=== PATIENT | female | born 1955 | race Caucasian/White ===

== ENCOUNTER → 2019-04-11 12:25 | Outpatient (CLI) | payer BC, SELFPAY ==
[2019-04-11 11:43] VITALS: BMI 26.6
[2019-04-11 13:38] LABS: Absolute Lymphocyte Count 2.71 X10^3/uL (0.83-4.51); Absolute Neutrophil Count 4.3 X10^3/uL (2.0-7.7); Basophil# 0.05 X10^3/uL; Basophil% 0.6 % (0-1); Eosinophil# 0.13 X10^3/uL; Eosinophils% 1.6 % (0-5); Hemoglobin 13.6 g/dL (12.0-15.0); Lymphocyte # 2.71 X10^3/ul (4.0); Lymphocyte % 34.2 % (19-41); Mean Corp Hgb Conc 32.4 g/dL (32-36); Mean Corpuscular Hgb 31.1 pg (27.0-32.0); Mean Corpuscular Volume 95.9 fL (81-99); Mean Platelet Vol. 9.7 fl (6.2-12.0); Monocyte# 0.76 X10^3/uL; Monocyte% 9.6 % (0-10); NRBC Flagged by Analyzer 0 % (0-5); Neutrophil # 4.25 X10^3/uL (2.7-7.7); Neutrophil % 53.7 % (47-70); Platelet Count 325 K/mm3 (150-450); RBC Distribution Width CV 11.4 % (11.6-14.6); Red Blood Count 4.38 M/mm3 (4.2-5.4); White Blood Count 7.9 K/mm3 (4.4-11.0)
[2019-04-11 13:46] LABS: Partial Thromboplast Time 29.3 Seconds (24.1-36.2); Prothrombin Time (Protime)PT. 13.3 SECONDS (11.7-14.9)
[2019-04-11 14:03] LABS: Anion Gap 3 (5-15); BUN 14 mg/dL (7-18); BUN/Creat Ratio 19.9 RATIO (10-20); Calcium,Total 9.3 mg/dL (8.5-10.1); Chloride 99 mmol/L (98-107); EST Glomerular Filtration Rate 90 mL/min (>60); Est Glom Filt Rate - Afr Amer 109 mL/min (>60); Glucose 142 mg/dL (74-106); Potassium 4.2 mmol/L (3.5-5.1); Sodium Level 134 mmol/L (136-145)
== END ==
PROVIDERS: Family Provider Family Medicine; PCP Family Medicine; Referring Provider Specialist; Visit Provider Specialist
DX: I25.10 Atherosclerotic heart disease of native coronary artery without angina pectoris (principal); I10 Essential (primary) hypertension; E78.5 Hyperlipidemia, unspecified; Z95.5 Presence of coronary angioplasty implant and graft
CPT/HCPCS: 36415; 80048; 85025; 85610; 85730

== ENCOUNTER 2019-04-20 08:35 | Day surgery (SDC) | payer BC, SELFPAY ==
[2019-04-11 11:43] VITALS: BMI 26.6
[2019-04-19 07:34] VITALS: BMI 26.6
[2019-04-20 11:45] LABS: Blood Gas Specimen Type VEN; VBG BASE EXCESS 1 mmol/L (-1.0-3.5); VBG Bicarbonate 27 mmol/L (22-26); VBG Oxygen Content 28 mmol/L (23-33); VBG PO2 34 mmHg (25-40); VBG SO2 63 % (50-70); VBG pCO2 47.9 mmHg (41-51); VBG pH 7.35 (7.32-7.42)
[2019-04-20 11:45] LABS: Blood Gas Specimen Type VEN; VBG BASE EXCESS 4 mmol/L (-1.0-3.5); VBG Bicarbonate 30 mmol/L (22-26); VBG Oxygen Content 31 mmol/L (23-33); VBG PO2 34 mmHg (25-40); VBG SO2 63 % (50-70); VBG pCO2 50.4 mmHg (41-51); VBG pH 7.38 (7.32-7.42)
[2019-04-20 11:46] LABS: Blood Gas Specimen Type VEN; VBG BASE EXCESS 2 mmol/L (-1.0-3.5); VBG Bicarbonate 27 mmol/L (22-26); VBG Oxygen Content 29 mmol/L (23-33); VBG PO2 40 mmHg (25-40); VBG SO2 74 % (50-70); VBG pCO2 46.5 mmHg (41-51); VBG pH 7.38 (7.32-7.42)
--- NOTE | 2019-04-20 16:31 | CL.D_ITS ---
Patient Name: Gil MARTINEZ Study Date: 04/20/2019 Performing: Miranda Retana MD Ht: 64 inches 163 cm : 1955 Wt: 154.5 lbs 70 kg Age: 63 Gender: female BSA: 1.76 PROCEDURE(S) PERFORMED LA68-AXQ/LHC/COR/LV CLINICAL PROFILE AND INDICATIONS Indications: Worsening Angina, pulmonary HTN Heart Failure: None Stress/Imaging Stress/Image Study Performed: No CAD Presentations: Unstable angina. CONCLUSIONS No significant stenoses. Patent prior stent in LCx. EF is 55% with inferobasal hypokinesis. No signif icant or MR. Elevated right heart pressures. Normal PCWP and LVEDP RECOMMENDATIONS DESCRIPTION OF PROCEDURE The patient arrived to the procedure lab. The risks and benefits of the procedure as well as a full d escription of our services here and current unavailability of surgical backup were fully explained to the patient and/or their significant other prior to the catheterization. The Timeout was completed, verifying the correct patient and procedure. The patient's procedural site was prepped and draped in the usual fashion. Local anesthetic was given subcutaneously to right radial region with Lidocaine 2% . Local anesthetic was given subcutaneously to right ulner region with Lidocaine 2%. Using a modified Seldinger technique, and ultrasound guidance,arterial access was obtained via the right ulner artery , a 6Fr sheath was inserted. Venous access was obtained via the right antecubital vein, a 7Fr sheath was inserted. A 7Fr thermal dilution catheter was inserted and right heart pressures were recorded, i t was then advanced to PA position for cardiac outputs. The Thermal dilution catheter was then removed. Left Coronary Artery selective angiography was performed in multiple views using a 5 Fr . JL3.5 catheter. Left Coronary Artery selective angiography was performed in multiple views using a 5 Fr. JL3.5 catheter. Right Coronary Artery selective angiography was then performed in multiple view s using a 5 Fr. JR 4 catheter. Left Ventriculography was performed in HOLDEN projection using a 5 Fr. Pi gtail catheter. LV to AO pullback pressures were then recorded.The arterial sheath was pulled and a T R Band was applied for hemostasis CORONARY ANGIOGRAPHY DOMINANCE: Left Dominant LEFT HEART ASSESSMENT Left Ventricular Ejection Fraction: by LV Gram 55 % Inferior Basal Hypokinesis - Mild RIGHT HEART ASSESSMENT Binu CO: 6.66 Binu CI: 3.78 PW: 15/12 11 PA: 47/19 29 RV: 47/3 9 RA: 9/7 6 PVR: 341 SVR: 829 LEFT MAIN: Angiographically normal LEFT ANTERIOR DESCENDING ARTERY: Mild luminal irregularities CIRCUMFLEX ARTERY: Mild luminal irregularities, Previously placed stent is patent RIGHT CORONARY ARTERY: Mild luminal irregularities VALVE FINDINGS: No Aortic Valve Stenosis No Mitral Insufficency COMPLICATIONS No Complications PROCEDURE MEDICATIONS Versed 1 mg IV Fentanyl 50 mcg IV Versed 1 mg IV Fentanyl 50 mcg IV Baby Aspirin (81mg) 1 Tabs PO @ 04/20/2019 08:59:02 SUMMARY OF HEMODYNAMIC DATA Time AIR REST ECG 09:08:36 RV 47/3, 9 11:07:17 PA 47/19 (29) PA 11:09:23 PW 15/12 (11) PV 11:09:43 RA 12/02 (6) SV 11:11:59 AO 99/56 (75) SA 11:35:09 LV 131/-7, 7 11:39:04 LV 121/0, 11 11:39:23 LV 120/1, 11 11:39:31 LVp 115/0, 13 11:40:17 AOp 112/51 (75) 11:40:23 Type SV CO (l/m) CI (l/m/ HR Time AIR REST Binu 121.10 6.66 3.78 55 09:08:36 Label % O2 Pres/Loc Time AIR REST AO 93 PV 11:34:34 PA 63 PA 11:34:40 RA 74 SV 11:34:47 RV 63 11:34:56 Signed By Miranda Retana MD On 04/20/2019 4:31:03 PM Miranda Retana MD
== END 2019-04-20 14:10 | disposition home or self-care (01) ==
LOC: CLSP 08:36
PROVIDERS: PCP Family Medicine; Referring Provider Specialist; Visit Provider Specialist
DX: I25.110 Atherosclerotic heart disease of native coronary artery with unstable angina pectoris (principal); I27.20 Pulmonary hypertension, unspecified; I25.2 Old myocardial infarction; I10 Essential (primary) hypertension; E78.5 Hyperlipidemia, unspecified; J44.9 Chronic obstructive pulmonary disease, unspecified; K21.9 Gastro-esophageal reflux disease without esophagitis; F32.9 Major depressive disorder, single episode, unspecified; E11.9 Type 2 diabetes mellitus without complications; Z95.5 Presence of coronary angioplasty implant and graft; Z79.84 Long term (current) use of oral hypoglycemic drugs; Z79.82 Long term (current) use of aspirin; Z79.899 Other long term (current) drug therapy; Z87.891 Personal history of nicotine dependence
CPT/HCPCS: 82803; 93460; 99152; 99153; J7040; C1751; C1769; C1894; Q9967

== ENCOUNTER 2020-07-20 13:09 | Emergency (ER) | payer BC, SELFPAY ==
[2020-02-11 11:40] VITALS: BMI 26.6
[2020-07-20 13:09] VITALS: BP 172/91; PULSE 68; RESP 16; RESP 17; TEMP 37; O2SAT 88; BMI 26.9
--- NOTE | 2020-07-20 13:12 | NURSING ---
NO OLD EKGS
--- NOTE | 2020-07-20 13:14 | EKG12_ITS ---
Test Reason : CP Blood Pressure : / mmHG Vent. Rate : 064 BPM Atrial Rate : 064 BPM P-R Int : 152 ms QRS Dur : 078 ms QT Int : 430 ms P-R-T Axes : 047 005 064 degrees QTc Int : 443 ms Normal sinus rhythm Normal ECG Confirmed by JESSICA CHENG, OLEG ([id number]), pictures editor LONI CURIEL ([id number]) on 07/23/2020 8:50:01 AM Referred By: CL Confirmed By:OLEG LOPEZ MD
--- NOTE | 2020-07-20 13:14 | RAD_ITS ---
STUDY: X-RAY CHEST REASON FOR EXAM: Female, 64 years old. chest pain TECHNIQUE: Frontal portable view of the chest COMPARISON: None. FINDINGS: Left hemidiaphragm is severely elevated. Right hemidiaphragm is normal. There are surgical clips in the left infraaortic presumed left hilar region. Left mid to upper lung zones are clear. There are coarsened interstitial markings in the right mid to lower lung zones. There is no pneumothorax, large pleural effusions or pulmonary edema. Cardiac size is difficult to estimate due to poor visualization of the left cardiac border. There is possibly mild cardiomegaly. RAD/Chest 1 View (Portable) IMPRESSION: 1. Severely elevated left hemidiaphragm, possibly postsurgical change versus diaphragmatic paralysis. 2. Increased right lower lung markings, unclear significance, possibly atelectasis. 3. Prior left mediastinal surgery. Electronically Signed: Alexandria Cook MD at 14:21 EDT Tel , Service support ,
[2020-07-20 13:15] VITALS: O2SAT 94
--- NOTE | 2020-07-20 13:17 | ED.DCSUM_ITS ---
History of Present Illness Chief Complaint: Chest Pain Informant: Patient Narrative: 64-year-old female with history of CAD, RI, COPD, hypertension, hyperlipidemia, cardiac stents presenting with chest pain which she describes as retrosternal and feeling tight. She states this started at lunchtime before she ate her meal. She does describe dyspepsia with this as well as nausea. She states she felt a little sweaty. Her states she was not sweating and did not look pale. Patient denies any shortness of breath that is new and she intermittently has to wear oxygen for COPD. Patient did take a nitroglycerin before arrival and her symptoms have improved. She is not having chest pain on arrival. Patient's last stress test was 2018. Last cardiac catheterization was 04/20/2019 which showed EF of 55% as well as patent stents. Patient was seen by pulmonology and diagnosed with pulmonary hypertension. At this point pulmonology was requesting a right heart catheterization by Dr. Dye and patient did have an office visit however no catheterization was scheduled. She was to be reevaluated in 1 year. Patient states he has had a couple of episodes of this pain since her last visit with cardiology. He states the worst one was today. It lasted about 30 minutes. Again it improved with nitroglycerin. Patient does have significant GI history and has GERD as well as Tenorio's esophagus. She is scheduled for upper endoscopy in a few days. Patient does not have a DVT/PE risk factors. - Past Medical History (1) Pulmonary hypertension Status: Chronic (2) Coronary artery disease Status: Chronic (3) Palpitations Status: Chronic Comment: Patient has fluttering sensation in her chest lasting about 10 seconds once every 2 weeks. We have discussed event monitoring at last visit and patient preferred to wait and see as this is not bothering her at this time. I think that is reasonable. I advised the patient that if she has prolonged episodes or if her symptoms become more frequent she can let us know. We will see her back in 6 months. (4) Hyperlipidemia Status: Chronic (5) Essential hypertension Status: Chronic (6) Atherosclerosis of coronary artery of red devil heart without angina pectoris Status: Chronic Comment: 3.0 x 24 mm Veriflex BMS to proximal CX 10/06/11 (7) Presence of stent in coronary artery Status: Chronic Comment: 3.0 x 24 mm Veriflex BMS to proximal CX 10/06/11 Past Medical History - Allergies and Home Meds Allergies/Adverse Reactions: Allergies milk Allergy (Intermediate, Verified 07/20/20 13:09) Upset Stomach Sulfa (Sulfonamide Antibiotics) Allergy (Intermediate, Verified 07/20/20 13:09) Itching Primary Care Physician: Howard Vicente MD [Primary Care Provider] - Prior records reviewed: Yes Past Medical History: - - Reviewed in problem list Surgical History: noncontributory Lives: Spouse/ Significant Other Smoking Status: Former smoker Alcohol: None Drugs: None Review of Systems General: Reports: Sweats. Denies: Chills, Fever Eyes: Denies: Visual changes - bilaterally, Diplopia ENT: Denies: Rhinorrhea, Sore throat Cardiovascular: Reports: Chest pain. Denies: Palpitations, Heart racing Respiratory: Denies: Dyspnea, Cough, Dyspnea on exertion Gastrointestinal: Reports: Vomiting, - - Dyspepsia. Denies: Abdominal pain, Nausea, Diarrhea, Melena, Hematochezia Genitourinary: Denies: Dysuria, Hematuria Musculoskeletal: Denies: Myalgias, Arthralgias Skin: Denies: Rash, Abscess Neurological: Denies: Headache, Weakness, Parasthesia Psych: Denies: Depression, Anxiety, Suicidal thoughts Endocrine: Denies: Polyuria, Polydipsia Hematologic: Denies: Easy bruising, Easy bleeding Physical Exam Vital Signs/Narrative: Vital Signs Temp Pulse Resp BP Pulse Ox 07/20/20 13:09 98.6 F 68 17 172/91 H 88 Inital Vital Signs reviewed: Yes General: Well nourished, No Acute Distress Head: Normocephalic, Atraumatic Eyes: Perrl, EOMI ENT: Moist mucous membranes, No rhinorrhea Cardiovascular: Regular rate, Regular rhythm Respiratory: No distress, CTA bilaterally Abdomen: Soft, Nontender, Nondistended Extremities: Nontender, No edema. Negative for: Calf Tenderness Skin: Normal color, No rash Neurological: Alert, Oriented x3, Cranial nerves II-XII grossly intact Psychological: Normal affect, Normal Mood Diagnostic/Tx/Re-eval - Medical Decision Making Patient arrives with chest pain which is improved with nitroglycerin. She does describe dyspepsia, nausea, feeling sweaty. Patient had EKG performed on arr ival which shows a sinus rhythm at 64 bpm without signs of ischemic changes as interpreted by myself. Chest x-ray one-view portable interpreted by myself shows no acute process. CBC, BMP, troponin all within normal limits with exception of a potassium of 3.4. D-dimer is negative. Patient was discussed with Dr. Dye given her risk factors and heart score as well as her upcoming endoscopy without any current cardiac clearance. Patient has not had recent stress test, EKG, cardiac catheterization. He felt as long as the patient did not have return of her chest pain and that her delta troponin was negative patient is stable to be discharged home. He also felt that she would be fine doing doing an endoscopy. This was discussed with patient. If delta troponin is negative, EKG does not change, and she does not have any more chest pain she will be discharged home [facility] as an out patient. Patient will be signed out to incoming ED physician for follow up EKG, troponin, and monitoring. Impression: 1. Chest pain ED Disposition - Plan for ED Patient: Disposition: Home or Assisted Living Instructions: ED Chest Pain, Uncertain Cause Referrals: Howard Vicente MD [Primary Care Provider] -
[2020-07-20] MEDS: Aspirin 81 MG TAB.CHEW 324 MG PO (13:22)
[2020-07-20 13:26] LABS: Absolute Lymphocyte Count 3.31 X10^3/uL (0.83-4.51); Absolute Neutrophil Count 5.4 X10^3/uL (2.0-7.7); Basophil# 0.05 X10^3/uL; Basophil% 0.5 % (0-1); Eosinophil# 0.16 X10^3/uL; Eosinophils% 1.6 % (0-5); Hematocrit 40.3 % (37-47); Lymphocyte # 3.31 X10^3/ul (0.83-4.51); Lymphocyte % 33.8 % (19-41); Mean Corp Hgb Conc 32.3 g/dL (32-36); Mean Corpuscular Hgb 30.2 pg (27.0-32.0); Mean Corpuscular Volume 93.5 fL (81-99); Mean Platelet Vol. 8.9 fl (6.2-12.0); Monocyte# 0.82 X10^3/uL; Monocyte% 8.4 % (0-10); NRBC Flagged by Analyzer 0 % (0-5); Neutrophil # 5.42 X10^3/uL (2.7-7.7); Neutrophil % 55.3 % (47-70); Platelet Count 356 K/mm3 (150-450); RBC Distribution Width CV 12.4 % (11.6-14.6); RBC Distribution Width SD 42.9 fl (35.1-43.9); Red Blood Count 4.31 M/mm3 (4.2-5.4); White Blood Count 9.8 K/mm3 (4.4-11.0)
[2020-07-20 13:39] LABS: D-Dimer Quantitative (DVT/PE) 0.36 FEU/ug/m (0.27-0.49)
[2020-07-20 13:46] LABS: Anion Gap 6 (5-15); BUN 20 mg/dL (7-18); BUN/Creat Ratio 30.7 RATIO (10-20); Calcium,Total 8.8 mg/dL (8.5-10.1); Chloride 99 mmol/L (98-107); Creatinine, Serum 0.65 mg/dL (0.55-1.02); EST Glomerular Filtration Rate 97 mL/min (>60); Est Glom Filt Rate - Afr Amer 118 mL/min (>60); Glucose 115 mg/dL (74-106); Potassium 4.3 mmol/L (3.5-5.1); Sodium Level 134 mmol/L (136-145)
[2020-07-20 14:09] VITALS: BP 142/73; PULSE 61; RESP 17; O2SAT 94
[2020-07-20 16:13] VITALS: BP 127/100; PULSE 62; RESP 22; O2SAT 93
--- NOTE | 2020-07-20 16:15 | EKG12_ITS ---
Test Reason : REPEAT Blood Pressure : / mmHG Vent. Rate : 063 BPM Atrial Rate : 063 BPM P-R Int : 152 ms QRS Dur : 078 ms QT Int : 432 ms P-R-T Axes : 041 009 070 degrees QTc Int : 442 ms Normal sinus rhythm Confirmed by JESSICA CHENG, OLEG ([id number]), newspaper or periodical editor LONI CURIEL ([id number]) on 07/23/2020 8:50:20 AM Referred By: EZEQUIEL Confirmed By:OLEG LOPEZ MD
[2020-07-20 16:48] VITALS: BP 155/83; PULSE 62; RESP 24; O2SAT 96
== END 2020-07-20 16:51 | disposition home or self-care (01) ==
PROVIDERS: Emergency Provider Student in an Organized Health Care Education/Training Program; PCP Family Medicine
DX: R07.9 Chest pain, unspecified (principal); I25.10 Atherosclerotic heart disease of native coronary artery without angina pectoris; I27.20 Pulmonary hypertension, unspecified; I10 Essential (primary) hypertension; I25.2 Old myocardial infarction; J44.9 Chronic obstructive pulmonary disease, unspecified; E78.5 Hyperlipidemia, unspecified; K21.9 Gastro-esophageal reflux disease without esophagitis; K22.70 Barrett's esophagus without dysplasia; Z95.5 Presence of coronary angioplasty implant and graft; Z79.899 Other long term (current) drug therapy; Z87.891 Personal history of nicotine dependence
CPT/HCPCS: 71045; 80048; 84484; 85025; 85379; 93005; 99284; A4216

== ENCOUNTER → 2021-02-10 12:25 | Outpatient (CLI) | payer BC, SELFPAY ==
[2021-02-10 13:28] LABS: BNP,B-Type NATRIURETIC PEPTIDE 101.1 pg/mL (0-100)
[2021-02-10 13:46] LABS: BUN 15 mg/dL (7-18); Creatinine, Serum 0.65 mg/dL (0.55-1.02); EST Glomerular Filtration Rate 98 mL/min (>60); Glucose 116 mg/dL (74-106)
[2021-02-10 13:47] LABS: Anion Gap 9 (5-15); BUN/Creat Ratio 23.1 RATIO (10-20); Chloride 98 mmol/L (98-107); Est Glom Filt Rate - Afr Amer 118 mL/min (>60); Potassium 4.2 mmol/L (3.5-5.1); Sodium Level 131 mmol/L (136-145)
== END ==
PROVIDERS: PCP Family Medicine; Referring Provider Nurse Practitioner Gerontology; Visit Provider Nurse Practitioner Gerontology
DX: R06.02 Shortness of breath (principal); I27.20 Pulmonary hypertension, unspecified
CPT/HCPCS: 36415; 80048; 83880

== ENCOUNTER → 2021-02-18 07:26 | Outpatient (CLI) | payer BC, SELFPAY ==
--- NOTE | 2021-02-18 07:29 | ECHOD_ITS ---
Reason For Study: DYSPNEA/SOB Procedure This was a 2D Doppler, Color Flow transthoracic echocardiogram. Exam performed in department. Left Ventricle Normal LV size. Left ventricular systolic function is normal. The estimated ejection fraction is 60 %. Stage 1 diastolic dysfunction. No regional wall motion abnormalities noted. Right Ventricle Normal RV size. Normal systolic function. Atria The left atrium is mildly enlarged. Normal right atrium. Mitral Valve Normal mitral valve. Tricuspid Valve Normal tricuspid valve. Mild (1+) tricuspid valve insufficiency. Pulmonary artery systolic pressure is 36 mmHg. Aortic Valve Trisinus/trileaflet aortic valve. Pulmonic Valve Normal pulmonic valve. Great Vessels Normal aortic root. The pulmonary artery is normal size. Normal inferior vena cava. Pericardium/Pleural No pericardial effusion. MMode/2D Measurements & Calculations LVIDd: 4.5 cm IVSd: 1.1 cm Ao root diam: 3.2 cm LVIDs: 2.9 cm LVPWd: 1.1 cm RVDd: 2.9 cm FS: 35.4 % LAV(MOD-bp): 78.6 ml LA A4 area: 23.2 cm2 LA dimension(2D): 4.3 cm LAV(MOD-bp) Indexed: 44.1 ml/m2 LAV(MOD-sp2): 77.9 ml LAV(MOD-sp4): 75.8 ml RA A4 area: 17.0 cm2 Time Measurements MV dec time: 0.22 sec Doppler Measurements & Calculations MV E max vik: 76.4 cm/sec Lat Peak E' Vik: 11.8 cm/sec Med Peak E' Vik: 8.3 cm/sec MV A max vik: 99.1 cm/sec E/E' lat: 6.5 E/E' med: 9.3 MV E/A: 0.77 Ao V2 max: 154.3 cm/sec LV V1 max: 118.2 cm/sec PA V2 max: 116.3 cm/sec Ao max P.5 mmHg LV V1 max P.6 mmHg TR max vik: 284.6 cm/sec TR max P.4 mmHg ECHO/Echo Complete Interpretation Summary Normal LV size. Left ventricular systolic function is normal. The estimated ejection fraction is 60 %. Stage 1 diastolic dysfunction. The left atrium is mildly enlarged. Structurally normal valves. Ordering Physician: Jackie Garcia Referring Physician: Howard Vicente Performed By: Lakshmi Galloway RDCS, RVT
--- NOTE | 2021-02-18 12:48 | STRESSREP ---
Stress Test Report Pharmacology myocardial perfusion stress test. 65-year-old lady with a history of chest pain. Stress protocol: Resting EKG demonstrates normal sinus rhythm with a rate of 80 bpm normal intervals are noted resting blood pressure is 122/78 mmHg. 0.4 mg of regadenoson was infused per usual protocol followed by rapid intravenous saline flush injection continuous EKG monitoring was performed. The maximum heart rate attained was 129 bpm which was 82% of max impact at heart rate the maximum workload was 1 metabolic equivalent. At rest there were no ST or T wave changes noted to suggest abnormal flow reserve and at peak infusion nonspecific ST changes were noted with did not meet the criteria for ischemia. No clinical angina was noted. Myocardial perfusion protocol. 11.9 mCi of technetium 99m sestamibi was injected at rest. 0.4 mg of regadenoson was infused per usual protocol. At peak infusion 33.1 mCi of technetium 99m sestamibi was injected stress images were obtained stress and rest images were reconstructed and compared in the short axis vertical long horizontal long axis. Gated images were also obtained. Perfusion SPECT analysis: Review of the stress images demonstrate normal uptake of tracer noted in all areas of the myocardium. The resting images similarly demonstrate normal uptake of tracer noted in all areas of the myocardium. No areas of reversibility are noted to suggest ischemia and no previous infarct is noted. Gated SPECT analysis: The gated ejection fraction is 74 Conclusion: Pharmacologic myocardial perfusion stress test with no evidence of ischemia. Preserved ejection fraction.
== END ==
PROVIDERS: PCP Family Medicine; Referring Provider Nurse Practitioner Gerontology; Visit Provider Nurse Practitioner Gerontology
DX: R07.9 Chest pain, unspecified (principal); R06.02 Shortness of breath
CPT/HCPCS: 78452; 93017; 93306; A9500; A4216; J2785

== ENCOUNTER → 2021-02-23 12:48 | Outpatient (CLI) | payer BC, SELFPAY ==
--- NOTE | 2021-02-23 12:51 | CDU_ITS ---
Reason For Study: Dizziness Rt. Velocities/BP Lt. Velocities/BP Prox CCA 74/20 cm/sec. Prox CCA 95/24 cm/sec. Mid CCA 82/18 cm/sec. Mid CCA 73/22 cm/sec. Dist CCA 74/25 cm/sec. Dist CCA 69/16 cm/sec. Prox ICA 72/17 cm/sec. Prox ICA 74/23 cm/sec. Mid ICA 85/27 cm/sec. Mid ICA 71/26 cm/sec. Dist ICA 55/18 cm/sec. Dist ICA 93/25 cm/sec. Rt. ICA/CCA = 1.0. Lt. ICA/CCA = 1.3. Prox ECA 75/18 cm/sec. Prox ECA 80/14 cm/sec. Rt. Vert. 60/17 cm/sec. Lt. Vert. 71/24 cm/sec. Right Extracranial There is intimal thickening but no significant atherosclerotic plaque noted in the right common carotid artery. There is heterogeneous, irregular atherosclerotic plaque noted in the right internal carotid artery. There is intimal thickening but no significant atherosclerotic plaque noted in the right external carotid artery. Antegrade flow is noted in the right vertebral artery. Heterogenous, non vascular structure noted Rt Thyroid measuring 1.18cm x 1.36cm. Left Extracranial There is heterogeneous, irregular atherosclerotic plaque noted in the left common carotid artery. There is heterogeneous, irregular atherosclerotic plaque noted in the left internal carotid artery. There is intimal thickening but no significant atherosclerotic plaque noted in the left external carotid artery. Antegrade flow is noted in the left vertebral artery. Procedure Carotid Duplex [id number]. This is a Carotid Duplex examination using B-mode, color flow and specral Doppler. Exam performed in department. VL/Carotid Duplex Ultrasound Interpretation Summary Irregular calcific plague at the proximal right internal carotid with <50% sten osis <50% stenosis right external carotid Irregular calcific plague at the proximal left internal carotid with <50% steno sis <50% stenosis left external carotid Patent, antegrade vertebrals bilaterally Heterogenous right thyroid nodule 1.18 x 1.36cm Ordering Physician: Jackie Garcia Referring Physician: Howard Vicente Performed By: Jennifer Zarco RDCS, RVT
== END ==
PROVIDERS: PCP Family Medicine; Referring Provider Nurse Practitioner Gerontology; Visit Provider Nurse Practitioner Gerontology
DX: I65.23 Occlusion and stenosis of bilateral carotid arteries (principal); R42 Dizziness and giddiness
CPT/HCPCS: 93880

== ENCOUNTER 2021-06-11 15:55 | Outpatient (CLI) | payer BC, SELFPAY ==
--- NOTE | 2021-06-11 16:03 | RAD_ITS ---
STUDY: X-RAY CHEST REASON FOR EXAM: Female, 65 years old. Cough TECHNIQUE: Frontal and lateral views COMPARISON: 07/16/2020. FINDINGS: Stable elevation left hemidiaphragm. The lungs are not fully expanded. There is no demonstrated pleural abnormality. Normal size heart. There are surgical clips over the mediastinum. Normal visualized pulmonary arteries. Calcified aortic arch and descending thoracic aorta. Mild degenerative changes of the thoracic spine. Normal visualized ribs, clavicles, and shoulders. There is no demonstrated abnormality of the visualized soft tissue structures of the upper abdomen. RAD/Chest PA and Lateral IMPRESSION: Elevated left hemidiaphragm. No acute pulmonary pathology. Electronically Signed: Kuldeep Uriarte DO at 16:38 EDT ,
[2021-06-11 17:27] LABS: Absolute Lymphocyte Count 2.61 X10^3/uL (0.83-4.51); Absolute Neutrophil Count 10.8 X10^3/uL (2.0-7.7); Basophil# 0.05 X10^3/uL; Basophil% 0.3 % (0-1); Eosinophil# 0.33 X10^3/uL; Eosinophils% 2.2 % (0-5); Hematocrit 41.6 % (37-47); Lymphocyte # 2.61 X10^3/ul (0.83-4.51); Lymphocyte % 17.2 % (19-41); Mean Corp Hgb Conc 33.7 g/dL (32-36); Mean Corpuscular Hgb 30.7 pg (27.0-32.0); Mean Corpuscular Volume 91.2 fL (81-99); Mean Platelet Vol. 8.8 fl (6.2-12.0); Monocyte# 1.23 X10^3/uL; Monocyte% 8.1 % (0-10); NRBC Flagged by Analyzer 0 % (0-5); Neutrophil # 10.82 X10^3/uL (2.7-7.7); Neutrophil % 71.4 % (47-70); Platelet Count 462 K/mm3 (150-450); RBC Distribution Width CV 12.7 % (11.6-14.6); RBC Distribution Width SD 42.4 fl (35.1-43.9); Red Blood Count 4.56 M/mm3 (4.2-5.4); White Blood Count 15.2 K/mm3 (4.4-11.0)
[2021-06-11 17:42] LABS: Anion Gap 4 (5-15); BUN 11 mg/dL (7-18); BUN/Creat Ratio 15.5 RATIO (10-20); Calcium,Total 8.8 mg/dL (8.5-10.1); Chloride 97 mmol/L (98-107); Creatinine, Serum 0.71 mg/dL (0.55-1.02); EST Glomerular Filtration Rate 88 mL/min (>60); Est Glom Filt Rate - Afr Amer 106 mL/min (>60); Glucose 151 mg/dL (74-106); Potassium 4.6 mmol/L (3.5-5.1); Sodium Level 129 mmol/L (136-145)
== END 2021-06-11 23:59 | disposition home or self-care (01) ==
PROVIDERS: PCP Family Medicine; Referring Provider Nurse Practitioner Gerontology; Visit Provider Nurse Practitioner Gerontology
DX: R05.9 Cough, unspecified (principal); R06.02 Shortness of breath; E87.1 Hypo-osmolality and hyponatremia
CPT/HCPCS: 36415; 71046; 80048; 85025

== ENCOUNTER 2021-06-18 08:11 | Observation (INO) | payer BC, SELFPAY ==
[2021-06-18] VITALS (17 sets, daily range): BP systolic 137–183; BP diastolic 73–105; PULSE 76–118; RESP 16–26; TEMP 36.2–37.2; O2SAT 83–96; BMI 25.9; BMI 26.4
--- NOTE | 2021-06-18 09:11 | EKG12_ITS ---
Test Reason : SOB Blood Pressure : / mmHG Vent. Rate : 098 BPM Atrial Rate : 098 BPM P-R Int : 146 ms QRS Dur : 072 ms QT Int : 328 ms P-R-T Axes : 049 009 072 degrees QTc Int : 418 ms Normal sinus rhythm Nonspecific ST and T wave abnormality Abnormal ECG Confirmed by SUREKHA CHENG, DEAN ([id number]), senior editor LONI CURIEL ([id number]) on 06/22/2021 10:40:59 AM Referred By: EZEQUIEL Confirmed By:DEAN IRBY MD
--- NOTE | 2021-06-18 09:16 | ED.VIS.DYS ---
HPI <MAYKEL Alas - Last Filed: 06/18/21 10:56> History of Present Illness Chief Complaint: Shortness of Breath Detail of Chief Complaint: i Narrative Narrative: Patient is a 65-year-old female who presents [facility] shortness of breath for 3 weeks, patient had influenza A 3 weeks ago, she has had worsening symptoms, using her supplemental oxygen at all times, patient is febrile today at 101 prior to leaving the house. Patient states that she is coughing, having yellow to clear sputum. Patient states that she has full body aches. Patient she does use her albuterol nebulizers at home however this is little to no relief. Patient denies any nausea or vomiting. Patient is COVID-19 vaccinated. Patient denies any chest pain PFSH <MAYKEL Alas - Last Filed: 06/18/21 10:56> [facility] Medical History Atherosclerosis of coronary artery of [place] heart without angina pectoris Barretts esophagus Bilateral low back pain with sciatica Cataracts, bilateral COPD (chronic obstructive pulmonary disease) Depression Essential hypertension GERD (gastroesophageal reflux disease) History of lung cancer History of ST elevation myocardial infarction (STEMI) (~09/2011) Hyperlipidemia Multinodular goiter Type 2 diabetes mellitus without complication Home Medications albuterol sulfate 90 mcg/actuation aerosol inhaler 2 puff INHALATION Q6H PRN 11/30/18 [History Last Taken Unknown] aspirin 81 mg tablet,delayed release 81 mg PO QHS 11/30/18 [History Last Taken 06/17/21] loratadine 10 mg tablet 10 mg PO DAILY 11/30/18 [History Last Taken Unknown] meloxicam 15 mg tablet 15 mg PO DAILY 11/30/18 [History Last Taken Unknown] montelukast 10 mg tablet 10 mg PO QPM 11/30/18 [History Last Taken Unknown] oxniradx-nno-zayoy acid 0.4 mg-lycopene 300 mcg-lutein 250 mcg tablet 1 tab PO DAILY 11/30/18 [History Last Taken Unknown] omega-3 fatty acids 1,000 mg capsule 2,000 mg PO DAILY cap 11/30/18 [History Last Taken Unknown] omeprazole 40 mg capsule,delayed release 40 mg PO BIDCM cap 11/30/18 [History Last Taken Unknown] pravastatin 40 mg tablet 40 mg PO DAILY 11/30/18 [History Last Taken Unknown] metformin 500 mg tablet,extended release 24hr 500 mg PO BIDCM tab 08/08/19 [History Last Taken Unknown] albuterol sulfate 2.5 mg INHALATION Q4H PRN 02/11/20 [History Last Taken 06/18/21] cyanocobalamin (vitamin B-12) 1,000 mcg capsule 1,000 mcg PO DAILY 02/11/20 [History Last Taken Unknown] glipizide 5 mg tablet 2.5 mg PO DAILY tab 02/11/20 [History Last Taken Unknown] polyethylene glycol 3350 17 gram/dose oral powder 17 g PO DAILY g 02/11/20 [History Last Taken Unknown] enalapril maleate 20 mg tablet 20 mg PO BID #180 tab 02/10/21 [Rx Last Taken Unknown] nitroglycerin 0.4 mg sublingual tablet 0.4 mg SUBLINGUAL Q5M PRN #25 tab 02/11/21 [Rx Last Taken Unknown] magnesium oxide 250 mg PO DAILY 04/07/21 [History Last Taken Unknown] metoprolol tartrate 100 mg tablet 100 mg PO BID #28 tab 06/09/21 [Rx Last Taken Unknown] amlodipine 10 mg PO DAILY 06/18/21 [History Last Taken 06/17/21] carboxymethylcellulose sodium 1 drp EACH EYE BID 06/18/21 [History Last Taken Unknown] cholecalciferol (vitamin D3) 50 mcg PO DAILY 06/18/21 [History Last Taken Unknown] bnaoqtqpnlw-onprynlmp-ftaueacx [Trelegy Ellipta] 1 ea INHALATION DAILY 06/18/21 [History Last Taken Unknown] maltodextrin 1 ea PO QODAY 06/18/21 [History Last Taken Unknown] sertraline 25 mg PO DAILY 06/18/21 [History Last Taken Unknown] spironolactone 25 mg PO DAILY 06/18/21 [History Last Taken Unknown] Allergy/AdvReac Type Severity Reaction Status Date / Time milk Allergy Intermediate Upset Verified 06/18/21 08:13 Stomach Sulfa (Sulfonamide Allergy Intermediate Itching Verified 06/18/21 08:13 Antibiotics) Family History Mother Cancer lung Diabetes CVA (cerebral vascular accident) Myocardial infarction Father Ischemic heart disease CVA (cerebral vascular accident) Dementia Myocardial infarction CAD (coronary artery disease) CABG Sister Diabetes COPD (chronic obstructive pulmonary disease) CVA (cerebral vascular accident) Thyroid disorder Aunt Cancer breast Sister Diabetes Heart disease Surgical History History of bilateral cataract extraction (~12/2018) History of cholecystectomy History of hysterectomy History of left heart catheterization (04/20/19) History of lobectomy of lung History of tonsillectomy Presence of stent in coronary artery Social History (Reviewed 06/11/21 @ 15:21 by Jackie Garcia [employer], [employer]CHIT[employer]-C) Smoking Status: Former smoker how long ago did patient quit smokin.5 years ago alcohol intake: never substance use type: former substance user Date of last use: 30+ years ago. Experimented as a teen caffeine: No ROS <MAYKEL Alas - Last Filed: 06/18/21 10:56> ROS ED ROS Narrative Constitutional: Negative for weight loss or gain, weakness. Positive for fever, chills Eyes: Negative for vision loss, vision change, double vision ENT: Negative for any hearing changes, ringing in the ears, dizziness, discharge, pain Nose: Negative for any congestion, runny nose, sinus pain, allergies Throat: Negative for any sore throat hoarseness, voice changes, Cardiovascular: Negative for any chest pain, tightness, palpitations, racing heartbeat Respiratory: Negative for any , coughing sputum production, dyspnea on exertion, dyspnea hemoptysis. Positive for cough Gastrointestinal: Negative for any abdominal pain, nausea, vomiting, diarrhea, constipation, blood in stool, blood in vomit : Negative for any urinary frequency, incontinence, dysuria, retention, blood in urine Muscle skeletal: Negative for any muscle joint pain, stiffness, myalgias, arthralgias, neck pain, back pain Neurological: Negative for any headache, head injury, dizziness, syncope, numbness or tingling Skin: Negative for any rashes, lumps, itching, abrasions, lacerations Psychiatric: Negative for any depression, anxiety, stress, suicidal ideation, homicidal ideation Hematologic: Negative for any easy bruising, excessive bruising, easy bleeding Allergies: Negative for any eczema, hives, rash EXAM <MAYKEL Alas - Last Filed: 06/18/21 10:56> Physical Exam Const Vital Signs: 06/18/21 08:11 06/18/21 09:51 06/18/21 09:53 Temperature 97.2 F L 97.2 F L Temperature Source Temporal Temporal Pulse Rate 108 H 108 H Respiratory Rate 20 H 20 H Respiratory Effort Short of Breath Respiratory Depth Deep Respiratory Pattern Tachypnea Blood Pressure 140/85 H 140/85 H Blood Pressure Mean 103 103 Pulse Ox 94 94 Oxygen Delivery Method Room Air Room Air Nasal Cannula Oxygen Flow Rate (L/min) 2 06/18/21 10:10 Temperature Temperature Source Pulse Rate 99 Respiratory Rate 18 Respiratory Effort Respiratory Depth Respiratory Pattern Blood Pressure Blood Pressure Mean Pulse Ox Oxygen Delivery Method Oxygen Flow Rate (L/min) Positive well nourished and well developed General Appearance ED: well developed HEENT atraumatic Eyes PERRL Neck supple Resp Resp Narrative: While patient was at rest, she was 88%, patient was tachypneic Auscultation: wheezes left lower and right lower Cardio Rate: tachycardic GI non-tender Palpation: soft Back/Spine normal to inspection Extremity normal to inspection Neuro oriented x3 Sensorium / Orientation: alert and oriented to person Psych mental status grossly normal Skin Rashes: no rashes <Dr. Francesco Ochoa DO - Last Filed: 06/18/21 13:47> Physical Exam Const Vital Signs: 06/18/21 08:11 06/18/21 09:51 06/18/21 09:53 Temperature 97.2 F L 97.2 F L Temperature Source Temporal Temporal Pulse Rate 108 H 108 H Respiratory Rate 20 H 20 H Respiratory Effort Short of Breath Respiratory Depth Deep Respiratory Pattern Tachypnea Blood Pressure 140/85 H 140/85 H Blood Pressure Mean 103 103 Pulse Ox 94 94 Oxygen Delivery Method Room Air Room Air Nasal Cannula Oxygen Flow Rate (L/min) 2 06/18/21 10:10 Temperature Temperature Source Pulse Rate 99 Respiratory Rate 18 Respiratory Effort Respiratory Depth Respiratory Pattern Blood Pressure Blood Pressure Mean Pulse Ox Oxygen Delivery Method Oxygen Flow Rate (L/min) MDM <MAYKEL Alas - Last Filed: 06/18/21 10:56> [facility] MDM Narrative Medical decision making narrative: Patient appears to be in mild respiratory distress, patient was 88% on room air at rest, patient was febrile at home at 101 Fahrenheit. Patient presents the emergency department for worsening shortness of breath, feeling of fever and chills and productive cough for the last 48 hours. Patient did receive a full septic work-up with 2 sets of blood cultures, patient was leukocytic, patient EKG showed tachycardia however no acute process. Patient's chest x-ray was unremarkable. Patient did receive IV fluids, Tylenol, breathing treatments, IV steroids, this did improve the patient's symptoms. On reevaluation, the patient was 92 to 93% on 2 L, patient still was tachypneic, was feeling unwell, patient will be admitted to the hospital. Patient started on IV azithromycin, Rocephin, will be admitted to the hospitalist. Lab Data Attestation: I reviewed the patient's lab results. Labs: Laboratory Results - last 24 hr 06/18/21 06/18/21 06/18/21 09:40 09:40 09:40 WBC 14.2 H RBC 4.03 L Hgb 12.0 Hct 36.7 L MCV 91.1 MCH 29.8 MCHC 32.7 RDW Std Deviation 45.7 H RDW Coeff of Miguelito 13.5 Plt Count 517 H MPV 8.4 Immature Gran % (Auto) 0.800 Neut % (Auto) 72.4 H Lymph % (Auto) 16.8 L [place] % (Auto) 8.0 Eos % (Auto) 1.6 Baso % (Auto) 0.4 Absolute Neuts (auto) 10.3 H Absolute Lymphs (auto) 2.38 Nucleated RBC % 0 Sodium 132 L Potassium 4.2 Chloride 99 Carbon Dioxide 26.0 Anion Gap 7 BUN 9 Creatinine 0.60 Estim Creat Clear Calc 81.80 Est GFR (MDRD) Af Amer 129 Est GFR (MDRD) Non-Af 107 BUN/Creatinine Ratio 15.0 Glucose 143 H Lactic Acid Calcium 9.3 B-Natriuretic Peptide 107.7 H 06/18/21 09:40 WBC RBC Hgb Hct MCV MCH MCHC RDW Std Deviation RDW Coeff of Miguelito Plt Count MPV Immature Gran % (Auto) Neut % (Auto) Lymph % (Auto) [place] % (Auto) Eos % (Auto) Baso % (Auto) Absolute Neuts (auto) Absolute Lymphs (auto) Nucleated RBC % Sodium Potassium Chloride Carbon Dioxide Anion Gap BUN Creatinine Estim Creat Clear Calc Est GFR (MDRD) Af Amer Est GFR (MDRD) Non-Af BUN/Creatinine Ratio Glucose Lactic Acid 1.1 Calcium B-Natriuretic Peptide Radiography Chest X-Ray - ED: 1 View Diagnostic Testing: Clinical Impression(s) from Imaging Studies Chest X-Ray 06/18/21 09:43 IMPRESSION: Stable mild increased markings at the left lung base with blunting of the left costophrenic angle suggestive of scarring. Electronically Signed: Henry Al MD at 9:55 EDT , Chest x-ray read by ER attending EKG Normal sinus rhythm: Attestation: I personally reviewed and interpreted this EKG as follows: Interpretation: Sinus Rhythm Comments: Normal sinus rhythm, rate 98 bpm, AK interval 146 ms, QRS duration 72 ms Treatment and Re-Evaluation Narrative: Please see medical decision making. The entire plan was dictated there. Patient will be admitted. <Dr. Francesco Ochao, DO - Last Filed: 06/18/21 13:47> [facility] MDM Narrative Medical decision making narrative: Patient was seen in conjunction with the physician academic support assistant. I agree with work-up and assessment. Patient presented with shortness of breath and reported fever at home. Sepsis work-up obtained. Patient has slight leukocytosis at 14.2 she is with mild left shift. Renal function is normal. Electrolytes within normal limits except for sodium of 132. BNP slightly elevated at 107.7. Lactic acid was within normal limits. Patient still requiring more than her baseline home oxygen. She was treated with breathing treatments and steroids. Given the increased oxygen demand I believe she would benefit from admission and treatment. Rocephin and azithromycin given in the emergency room. Discussed with hospitalist for admission. Lab Data Labs: Laboratory Results - last 24 hr 06/18/21 06/18/21 06/18/21 09:40 09:40 09:40 WBC 14.2 H RBC 4.03 L Hgb 12.0 Hct 36.7 L MCV 91.1 MCH 29.8 MCHC 32.7 RDW Std Deviation 45.7 H RDW Coeff of Miguelito 13.5 Plt Count 517 H MPV 8.4 Immature Gran % (Auto) 0.800 Neut % (Auto) 72.4 H Lymph % (Auto) 16.8 L [place] % (Auto) 8.0 Eos % (Auto) 1.6 Baso % (Auto) 0.4 Absolute Neuts (auto) 10.3 H Absolute Lymphs (auto) 2.38 Nucleated RBC % 0 Sodium 132 L Potassium 4.2 Chloride 99 Carbon Dioxide 26.0 Anion Gap 7 BUN 9 Creatinine 0.60 Estim Creat Clear Calc 81.80 Est GFR (MDRD) Af Amer 129 Est GFR (MDRD) Non-Af 107 BUN/Creatinine Ratio 15.0 Glucose 143 H Lactic Acid Calcium 9.3 B-Natriuretic Peptide 107.7 H 06/18/21 09:40 WBC RBC Hgb Hct MCV MCH MCHC RDW Std Deviation RDW Coeff of Miguelito Plt Count MPV Immature Gran % (Auto) Neut % (Auto) Lymph % (Auto) [place] % (Auto) Eos % (Auto) Baso % (Auto) Absolute Neuts (auto) Absolute Lymphs (auto) Nucleated RBC % Sodium Potassium Chloride Carbon Dioxide Anion Gap BUN Creatinine Estim Creat Clear Calc Est GFR (MDRD) Af Amer Est GFR (MDRD) Non-Af BUN/Creatinine Ratio Glucose Lactic Acid 1.1 Calcium B-Natriuretic Peptide Radiography Diagnostic Testing: Clinical Impression(s) from Imaging Studies Chest X-Ray 06/18/21 09:43 IMPRESSION: Stable mild increased markings at the left lung base with blunting of the left costophrenic angle suggestive of scarring. Electronically Signed: Henry Al MD at 9:55 EDT , Discharge Plan Dx/Rx/DC Orders Clinical Impression: Hypoxia, Acute exacerbation of chronic obstructive pulmonary disease Disposition Disposition: Acute Care Hospital [facility] Discharge Date/Time: 06/18/21 11:39
--- NOTE | 2021-06-18 09:43 | RAD_ITS ---
STUDY: X-RAY CHEST REASON FOR EXAM: Female, 65 years old. Cough TECHNIQUE: Single AP portable view of the chest. COMPARISON: Comparison is made with prior study dated 06/11/2021. FINDINGS: Stable elevation of the left hemidiaphragm. Surgical clips are seen in the left infrahilar region. Stable blunting of the left costophrenic angle. Stable mild increased markings at the left lung base suggestive of scarring. Normal size heart. Normal mediastinum and [place]. Normal visualized pulmonary arteries. There is atherosclerotic calcification of the aortic arch with tortuosity. There are degenerative changes of the visualized thoracic spine. Normal visualized ribs, clavicles, and shoulders. There is no demonstrated abnormality of the visualized soft tissue structures of the upper abdomen. RAD/Chest 1 View (Portable) IMPRESSION: Stable mild increased markings at the left lung base with blunting of the left costophrenic angle suggestive of scarring. Electronically Signed: Henry Al MD at 9:55 EDT ,
[2021-06-18] MEDS: 0.9% Normal Saline 1,000 ML 999 ML IV (09:48)
[2021-06-18] MEDS: MethylPREDNISolone 125 MG/2 ML Vial IV (09:49)
[2021-06-18] MEDS: Acetaminophen 500 MG Tablet 1000 MG PO (09:49)
[2021-06-18 09:53] LABS: Absolute Lymphocyte Count 2.38 X10^3/uL (0.83-4.51); Absolute Neutrophil Count 10.3 X10^3/uL (2.0-7.7); Basophil# 0.06 X10^3/uL; Basophil% 0.4 % (0-1); Eosinophil# 0.23 X10^3/uL; Eosinophils% 1.6 % (0-5); Hematocrit 36.7 % (37-47); Lymphocyte # 2.38 X10^3/ul (0.83-4.51); Lymphocyte % 16.8 % (19-41); Mean Corp Hgb Conc 32.7 g/dL (32-36); Mean Corpuscular Hgb 29.8 pg (27.0-32.0); Mean Corpuscular Volume 91.1 fL (81-99); Mean Platelet Vol. 8.4 fl (6.2-12.0); Monocyte# 1.13 X10^3/uL; NRBC Flagged by Analyzer 0 % (0-5); Neutrophil # 10.27 X10^3/uL (2.7-7.7); Neutrophil % 72.4 % (47-70); Platelet Count 517 K/mm3 (150-450); RBC Distribution Width CV 13.5 % (11.6-14.6); RBC Distribution Width SD 45.7 fl (35.1-43.9); Red Blood Count 4.03 M/mm3 (4.2-5.4); White Blood Count 14.2 K/mm3 (4.4-11.0)
[2021-06-18 10:04] LABS: Anion Gap 7 (5-15); BUN 9 mg/dL (7-18); Calcium,Total 9.3 mg/dL (8.5-10.1); Chloride 99 mmol/L (98-107); EST Glomerular Filtration Rate 107 mL/min (>60); Est Glom Filt Rate - Afr Amer 129 mL/min (>60); Glucose 143 mg/dL (74-106); Potassium 4.2 mmol/L (3.5-5.1); Sodium Level 132 mmol/L (136-145)
[2021-06-18] MEDS: Ipratropium/Albuterol Sulfate 3 ML AMPUL.NEB INHALATION ×3 (10:10→19:45)
[2021-06-18] MEDS: Albuterol 2.5 MG/3 ML VIAL.NEB. INHALATION (10:10)
[2021-06-18 10:12] LABS: BNP,B-Type NATRIURETIC PEPTIDE 107.7 pg/mL (0-100)
[2021-06-18 10:13] LABS: Lactic Acid 1.1 mmol/L (0.4-1.9)
--- NOTE | 2021-06-18 10:48 | HP.PCM.HOS_ITS ---
HPI - General General Date of Admission: 06/18/21 HPI Narrative Gil MARTINEZ, is a 65 F who presents with a complaint of shortness of breath. She was diagnosed with influenza about 3.5 weeks ago. She was given a short course of steroids and levaquin then, which she completed. However she remains short of breath and is also wheezing. She does have a history of COPD. She was coughing and was mildly productive of clear sputum. She denied any chest pain, palpitations, dizziness, nausea vomiting or diarrhea. Review of systems otherwise negative. VItals on admission were temp of 97.2F, with AK of 108 and BP of 140/85., RR of 18 and she was on 2L of of oxygen. CBC showed wbc of 14.2, with hb of 12 and platelets of 517. Chemistry showed sodium of 132 and bicarb of 26 as well as platelets of 4.2. BNP was 107.7. CXR showed stable mild increased markings at the left lung base with blunting of the left costophrenic angle suggestive of scarring. She is being admitted to be managed for acute COPD exacerbation. [facility] Medical History Atherosclerosis of coronary artery of [place] heart without angina pectoris Barretts esophagus Bilateral low back pain with sciatica Cataracts, bilateral COPD (chronic obstructive pulmonary disease) Depression Essential hypertension GERD (gastroesophageal reflux disease) History of lung cancer History of ST elevation myocardial infarction (STEMI) (~09/2011) Hyperlipidemia Multinodular goiter Type 2 diabetes mellitus without complication Home Medications albuterol sulfate 90 mcg/actuation aerosol inhaler 2 puff INHALATION Q6H PRN 11/30/18 [History Last Taken Unknown] aspirin 81 mg tablet,delayed release 81 mg PO QHS 11/30/18 [History Last Taken 06/17/21] loratadine 10 mg tablet 10 mg PO DAILY 11/30/18 [History Last Taken Unknown] meloxicam 15 mg tablet 15 mg PO DAILY 11/30/18 [History Last Taken Unknown] montelukast 10 mg tablet 10 mg PO QPM 11/30/18 [History Last Taken Unknown] ahiwhuok-vug-dflhp acid 0.4 mg-lycopene 300 mcg-lutein 250 mcg tablet 1 tab PO DAILY 11/30/18 [History Last Taken Unknown] omega-3 fatty acids 1,000 mg capsule 2,000 mg PO DAILY cap 11/30/18 [History Last Taken Unknown] omeprazole 40 mg capsule,delayed release 40 mg PO BIDCM cap 11/30/18 [History Last Taken Unknown] pravastatin 40 mg tablet 40 mg PO DAILY 11/30/18 [History Last Taken Unknown] metformin 500 mg tablet,extended release 24hr 500 mg PO BIDCM tab 08/08/19 [History Last Taken Unknown] albuterol sulfate 2.5 mg INHALATION Q4H PRN 02/11/20 [History Last Taken 06/18/21] cyanocobalamin (vitamin B-12) 1,000 mcg capsule 1,000 mcg PO DAILY 02/11/20 [History Last Taken Unknown] glipizide 5 mg tablet 2.5 mg PO DAILY tab 02/11/20 [History Last Taken Unknown] polyethylene glycol 3350 17 gram/dose oral powder 17 g PO DAILY g 02/11/20 [History Last Taken Unknown] enalapril maleate 20 mg tablet 20 mg PO BID #180 tab 02/10/21 [Rx Last Taken Unknown] nitroglycerin 0.4 mg sublingual tablet 0.4 mg SUBLINGUAL Q5M PRN #25 tab 02/11/21 [Rx Last Taken Unknown] magnesium oxide 250 mg PO DAILY 04/07/21 [History Last Taken Unknown] metoprolol tartrate 100 mg tablet 100 mg PO BID #28 tab 06/09/21 [Rx Last Taken Unknown] amlodipine 10 mg PO DAILY 06/18/21 [History Last Taken 06/17/21] carboxymethylcellulose sodium 1 drp EACH EYE BID 06/18/21 [History Last Taken Unknown] cholecalciferol (vitamin D3) 50 mcg PO DAILY 06/18/21 [History Last Taken Unknown] achjgqjsnyk-byovmmwqd-ldidyuwp [Trelegy Ellipta] 1 ea INHALATION DAILY 06/18/21 [History Last Taken Unknown] maltodextrin 1 ea PO QODAY 06/18/21 [History Last Taken Unknown] sertraline 25 mg PO DAILY 06/18/21 [History Last Taken Unknown] spironolactone 25 mg PO DAILY 06/18/21 [History Last Taken Unknown] Allergy/AdvReac Type Severity Reaction Status Date / Time milk Allergy Intermediate Upset Verified 06/18/21 08:13 Stomach Sulfa (Sulfonamide Allergy Intermediate Itching Verified 06/18/21 08:13 Antibiotics) Family History Mother Cancer lung Diabetes CVA (cerebral vascular accident) Myocardial infarction Father Ischemic heart disease CVA (cerebral vascular accident) Dementia Myocardial infarction CAD (coronary artery disease) CABG Sister Diabetes COPD (chronic obstructive pulmonary disease) CVA (cerebral vascular accident) Thyroid disorder Aunt Cancer breast Sister Diabetes Heart disease Surgical History History of bilateral cataract extraction (~12/2018) History of cholecystectomy History of hysterectomy History of left heart catheterization (04/20/19) History of lobectomy of lung History of tonsillectomy Presence of stent in coronary artery Social History Smoking Status: Former smoker how long ago did patient quit smokin.5 years ago alcohol intake: never substance use type: former substance user Date of last use: 30+ years ago. Experimented as a teen caffeine: No ROS Constitutional Constitutional: Reports fatigue, malaise and weakness; Denies chills or fever(s) Eyes Eyes: Denies change in vision ENT HEENT: Denies headache(s), nasal congestion, sinus pressure or sore throat Cardiovascular Cardiovascular: Reports dyspnea on exertion; Denies chest pain, edema, lightheadedness, orthopnea, palpitations, paroxysmal nocturnal dyspnea, rapid heart rate or syncope Respiratory/Chest Respiratory/Chest: Reports cough, dyspnea, productive cough, shortness of breath at rest, shortness of breath with exertion and wheezing; Denies hemoptysis Gastrointestinal Gastrointestinal: Denies abdominal pain, coffee ground emesis, constipation, diarrhea, dyspepsia, nausea or vomiting Genitourinary Genitourinary: Denies burning urination or dysuria Musculoskeletal Musculoskeletal: Denies arthralgias or back pain Neurologic Neurologic: Denies confusion Psychiatric Psychiatric: Denies anxiety or depression Hematologic/Lymphatic Hematologic/Lymphatic: Denies anemia Vital Signs Vital Signs Vital Signs: 06/18/21 08:11 06/18/21 09:51 06/18/21 09:53 Temperature 97.2 F L 97.2 F L Temperature Source Temporal Temporal Pulse Rate 108 H 108 H Respiratory Rate 20 H 20 H Respiratory Effort Short of Breath Respiratory Depth Deep Respiratory Pattern Tachypnea Blood Pressure 140/85 H 140/85 H Blood Pressure Mean 103 103 Pulse Ox 94 94 Oxygen Delivery Method Room Air Room Air Nasal Cannula Oxygen Flow Rate (L/min) 2 06/18/21 10:10 Temperature Temperature Source Pulse Rate 99 Respiratory Rate 18 Respiratory Effort Respiratory Depth Respiratory Pattern Blood Pressure Blood Pressure Mean Pulse Ox Oxygen Delivery Method Oxygen Flow Rate (L/min) Weight Weight: 151 lb Body Mass Index (BMI) 25.9 Physical Exam Const alert, oriented x3 and no apparent distress General Appearance: cooperative HEENT normocephalic, head/scalp atraumatic, hearing grossly normal bilaterally and moist oral mucous membranes Eyes PERRL, EOMs intact bilaterally and conjunctivae normal Neck no lymphadenopathy and supple Resp Resp Narrative: mild wheezing in all lung johns, no crackles. On 2L of oxygen Cardio regular rate, regular rhythm, S1 normal heart sound, S2 normal heart sound and no murmurs GI normal to inspection, nondistended, normoactive bowel sounds, soft to palpation, non-tender and non-distended Extremity normal to inspection, full ROM and no clubbing, cyanosis or edema Peripheral Pulses: Yes pulses 2+ throughout Skin no rashes or lesions noted Neuro oriented x3, CN's II-XII intact bilaterally and moves all extremities Sensorium / Orientation: awake and alert Psych affect normal Results Lab / Micro Data Result Diagrams: 06/18/21 09:40 06/18/21 09:40 Labs: Laboratory Results - last 24 hr 06/18/21 09:40: WBC 14.2 H, RBC 4.03 L, Hgb 12.0, Hct 36.7 L, MCV 91.1, MCH 29.8, MCHC 32.7, RDW Std Deviation 45.7 H, RDW Coeff of Miguelito 13.5, Plt Count 517 H, MPV 8.4, Immature Gran % (Auto) 0.800, Neut % (Auto) 72.4 H, Lymph % (Auto) 16.8 L, [place] % (Auto) 8.0, Eos % (Auto) 1.6, Baso % (Auto) 0.4, Absolute Neuts (auto) 10.3 H, Absolute Lymphs (auto) 2.38, Nucleated RBC % 0 06/18/21 09:40: Sodium 132 L, Potassium 4.2, Chloride 99, Carbon Dioxide 26.0, Anion Gap 7, BUN 9, Creatinine 0.60, Estim Creat Clear Calc 81.80, Est GFR (MDRD) Af Amer 129, Est GFR (MDRD) Non-Af 107, BUN/Creatinine Ratio 15.0, Glucose 143 H, Calcium 9.3 06/18/21 09:40: B-Natriuretic Peptide 107.7 H 06/18/21 09:40: Lactic Acid 1.1 Micro: Microbiology 06/18/21 10:03 Nasal Secretion SARS-CoV-2 & FLU Antigen (Rapid) - Final Radiology Impression Chest X-Ray 06/18/21 09:43 IMPRESSION: Stable mild increased markings at the left lung base with blunting of the left costophrenic angle suggestive of scarring. Electronically Signed: Henry Al MD at 9:55 EDT , Assessment & Plan Assessment/Plan (1) SOB (shortness of breath): (2) Cough: PLAN: #Acute COPD exacerbation with bronchitis * Admit to PCU with telemetry * Patient states she had influenza about 2 weeks ago and has not felt well since then his shortness of breath worsened with associated wheezing. * Start on IV Solu-Medrol 40 mg every 8 hours as needed. * Put on IV azithromycin. * Breathing treatments bronchodilators. Titrate oxygen to maintain saturation above 90%. * * #Hyperlipidemia: On statin #hypertension: On amlodipine and enalapril as well as metoprolol and spironolactone #Type 2 diabetes mellitus: Hold Metformin. Insulin sliding scale. Accu-Cheks AC at bedtime. #Depression: On spironolactone DVT prophylaxis: Lovenox CODE STATUS: Full code * Patient counseled extensively about different types of CODE STATUS including full code, DNR CCA and DNR CCA. Patient elects to be full code. * Total iulk-lk-alkc time 16 minutes. Charges/Coding Visit Charges OBSV E&M: 11731 Initial observation care L2 Procedures Hospitalists Procedures: 11375 Advncd Care Plan 30 Min
[2021-06-18] MEDS: Ceftriaxone 1 GM/50 ML BAG IV (11:15)
--- NOTE | 2021-06-18 11:45 | CM.ED ---
RN CM Assessment Introduced role of RN CM to patient.? Patient is alert, oriented and able?to participate in RN CM Assessment. ?Care providers, pharmacy, and demographics verified. Admit Dx: OBS for Acute hypoxic resp insufficiency Re-Admit: No Barriers/Issues: None PCP: Howard Vicente Specialists: Pulm-[facility], Cardio- [facility] Preferred Pharmacy: [facility] Insurance: [place] Rx Benefit: Yes, [employer]? LNOK: Luis Goer LW/HPOA: States has both completed and HPOA is her Luis Gore. Aware not on file at [facility]. Living Arrangements:?Lives with her in a [facility], 1 step to enter home. ADL?s: Independent with ambulation and ADLs Transportation: Both her and her drive DME: Home O2- [facility], 2lpm prn and with exertion. Neb, Glucometer. HHC: None SNF: None Goal: Home and does not think will have any needs, issues, concerns with going home. Aware RNCM will continue to follow should any needs arise. DC PLAN: Home and monitor O2 status to see if Home O2 order needs any changes. HOANG Julian
[2021-06-18] MEDS: 0.9% Normal Saline 1,000 ML 75 ML IV (12:17)
[2021-06-18 12:46] LABS: Bedside Glucose 201 mg/dL (74-106)
[2021-06-18] MEDS: Insulin Lispro 100 UNIT/ML INSULN.PEN SC ×3 (13:08→21:48)
[2021-06-18] MEDS: Acetaminophen 325 MG Tablet 650 MG PO ×2 (14:59→21:53)
[2021-06-18 16:46] LABS: Bedside Glucose 265 mg/dL (74-106)
[2021-06-18] MEDS: glipiZIDE 5 MG Tablet 2.5 MG PO (18:14)
[2021-06-18] MEDS: Metoprolol Tartrate 100 MG Tablet PO (18:15)
[2021-06-18] MEDS: Lisinopril 20 MG Tablet PO (18:15)
[2021-06-18] MEDS: Pantoprazole Sodium 40 MG Tablet PO (18:15)
[2021-06-18] MEDS: Spironolactone 25 MG Tablet PO (19:08)
[2021-06-18] MEDS: amLODIPine 10 MG Tablet PO (19:09)
[2021-06-18] MEDS: Aspirin E.C. 81 MG Tablet PO (21:00)
[2021-06-18] MEDS: Montelukast 10 MG Tablet PO (21:01)
[2021-06-18 22:01] LABS: Bedside Glucose 201 mg/dL (74-106)
[2021-06-18] MEDS: MELATONIN 10 MG TABLET PO (23:25)
[2021-06-19] VITALS (19 sets, daily range): BP systolic 127–142; BP diastolic 69–78; PULSE 72–123; RESP 16–20; TEMP 36.4–36.8; O2SAT 88–96
[2021-06-19] MEDS: Ipratropium/Albuterol Sulfate 3 ML AMPUL.NEB INHALATION ×5 (00:11→19:08)
[2021-06-19] MEDS: 0.9% Normal Saline 1,000 ML 75 ML IV (03:31)
[2021-06-19] MEDS: Acetaminophen 325 MG Tablet 650 MG PO ×3 (04:13→22:29)
[2021-06-19 05:38] LABS: Absolute Lymphocyte Count 1.21 X10^3/uL (0.83-4.51); Basophil# 0.01 X10^3/uL; Basophil% 0.1 % (0-1); Hematocrit 32.1 % (37-47); Hemoglobin 10.5 g/dL (12.0-15.0); Lymphocyte # 1.21 X10^3/ul (0.83-4.51); Lymphocyte % 12.3 % (19-41); Mean Corp Hgb Conc 32.7 g/dL (32-36); Mean Corpuscular Volume 91.7 fL (81-99); Mean Platelet Vol. 8.6 fl (6.2-12.0); Monocyte# 0.46 X10^3/uL; Monocyte% 4.7 % (0-10); NRBC Flagged by Analyzer 0 % (0-5); Neutrophil # 8.03 X10^3/uL (2.7-7.7); Neutrophil % 81.8 % (47-70); Platelet Count 470 K/mm3 (150-450); RBC Distribution Width CV 13.4 % (11.6-14.6); RBC Distribution Width SD 45.4 fl (35.1-43.9); White Blood Count 9.8 K/mm3 (4.4-11.0)
[2021-06-19 06:09] LABS: Anion Gap 8 (5-15); BUN 8 mg/dL (7-18); BUN/Creat Ratio 20.6 RATIO (10-20); Calcium,Total 8.7 mg/dL (8.5-10.1); Chloride 101 mmol/L (98-107); Creatinine, Serum 0.39 mg/dL (0.55-1.02); EST Glomerular Filtration Rate 176 mL/min (>60); Est Glom Filt Rate - Afr Amer 213 mL/min (>60); Estimated Creatinine Clearance 125.84 ml/min; Glucose 229 mg/dL (74-106); Sodium Level 133 mmol/L (136-145)
[2021-06-19] MEDS: Insulin Lispro 100 UNIT/ML INSULN.PEN SC ×4 (06:38→22:21)
[2021-06-19 07:01] LABS: Bedside Glucose 232 mg/dL (74-106)
[2021-06-19] MEDS: Multivitamins,Ther W-Minerals Tablet 1 TABLET PO (07:49)
[2021-06-19] MEDS: Pantoprazole Sodium 40 MG Tablet PO ×2 (07:49→16:16)
[2021-06-19] MEDS: glipiZIDE 5 MG Tablet 2.5 MG PO (07:49)
[2021-06-19] MEDS: Cholecalciferol (VIT D3) 25 MCG TABLET (1,000 UNITS) 50 MCG PO (09:30)
[2021-06-19] MEDS: Enoxaparin 40 MG/0.4 ML Syringe SC (09:31)
[2021-06-19] MEDS: Omega-3 Acid Ethyl Esters 1 GM Capsule 2 GM PO (09:31)
[2021-06-19] MEDS: Cyanocobalamin 500 MCG Tablet 1000 MCG PO (09:31)
[2021-06-19] MEDS: Magnesium Chloride 64 MG Delay Rel.Tablet 128 MG PO (09:31)
[2021-06-19] MEDS: Sertraline 50 MG Tablet 25 MG PO (09:32)
--- NOTE | 2021-06-19 09:32 | CASEMGMT ---
Addendum entered by Jazzmine Wolff 06/19/21 13:43: Green sheet left on chart for increased home oxygen need. Pt needs tested on room air at rest and 2L w/ exertion(her home dose). Colton DYE CM Addendum entered by Jazzmine Wolff 06/19/21 10:52: Per [facility], pt's order is for 2L nc with exertion. Colton DYE CM Original Note: Message left with [facility] to check on pt's home oxygen order. CM to follow. Colton DYE CM
[2021-06-19] MEDS: Loratadine 10 MG Tablet PO (09:34)
[2021-06-19] MEDS: Meloxicam 15 MG Tablet PO (09:34)
[2021-06-19] MEDS: Lisinopril 20 MG Tablet PO ×2 (09:34→22:13)
[2021-06-19] MEDS: Metoprolol Tartrate 100 MG Tablet PO ×2 (09:35→22:12)
[2021-06-19] MEDS: Spironolactone 25 MG Tablet PO (11:05)
[2021-06-19] MEDS: Polyethylene Glycol 3350 17 GM PACKET PO (11:06)
[2021-06-19] MEDS: amLODIPine 10 MG Tablet PO (11:06)
[2021-06-19 11:31] LABS: Bedside Glucose 285 mg/dL (74-106)
--- NOTE | 2021-06-19 14:48 | PN.HOSP_ITS ---
Subjective Subjective Patient seen and examined. She complained of a headache. Her breathing was getting better. She denied any nausea, fever, chills, chest pain, palpitations or dizziness. REview of systems was otherwise negative. Objective Data Objective Data Vital Signs: Vital Signs Temp Pulse Resp BP Pulse Ox 97.9 F 91 18 142/78 H 94 06/19/21 13:56 06/19/21 14:23 06/19/21 13:56 06/19/21 13:56 06/19/21 13:56 Oxygen Flow Rate (L/min) 3 Oxygen Delivery Method Nasal Cannula Weight: 153 lb 10.595 oz Body Mass Index (BMI) 26.4 Intake & Output: Intake and Output for Last 24 Hours 06/17/21 06/18/21 06/19/21 23:59 23:59 23:59 Intake Total 1605 / 1905 1795 / 1795 Balance 1605 / 1905 1795 / 1795 Lab / Micro Data Result Diagrams: 06/19/21 05:06 06/19/21 05:06 Labs: Laboratory Results - last 24 hr 06/18/21 16:23: POC Glucose 265 H 06/18/21 21:46: POC Glucose 201 H 06/19/21 05:06: WBC 9.8, RBC 3.50 L, Hgb 10.5 L, Hct 32.1 L, MCV 91.7, MCH 30.0, MCHC 32.7, RDW Std Deviation 45.4 H, RDW Coeff of Miguelito 13.4, Plt Count 470 H, MPV 8.6, Immature Gran % (Auto) 1.100 H, Neut % (Auto) 81.8 H, Lymph % (Auto) 12.3 L , [place] % (Auto) 4.7, Eos % (Auto) 0.0, Baso % (Auto) 0.1, Absolute Neuts (auto) 8.0 H, Absolute Lymphs (auto) 1.21, Nucleated RBC % 0 06/19/21 05:06: Sodium 133 L, Potassium 4.0, Chloride 101, Carbon Dioxide 24.0, Anion Gap 8, BUN 8, Creatinine 0.39 L, Estim Creat Clear Calc 125.84, Est GFR (MDRD) Af Amer 213, Est GFR (MDRD) Non-Af 176, BUN/Creatinine Ratio 20.6 H, Glucose 229 H, Calcium 8.7 03/25/22 06:37: POC Glucose 232 H 06/19/21 11:09: POC Glucose 285 H Micro: Microbiology 06/18/21 10:03 Nasal Secretion SARS-CoV-2 & FLU Antigen (Rapid) - Final Physical Exam Const alert, oriented x3 and no apparent distress General Appearance: cooperative Exam Limitations: no limitations HEENT normocephalic, head/scalp atraumatic, hearing grossly normal bilaterally and moist oral mucous membranes Head and Scalp: normocephalic Eyes PERRL, EOMs intact bilaterally and conjunctivae normal Neck no lymphadenopathy and supple Resp Resp Narrative: mild wheezing in all lung johns, no crackles. On 2L of oxygen Cardio regular rate, regular rhythm, S1 normal heart sound, S2 normal heart sound and no murmurs GI normal to inspection, nondistended, normoactive bowel sounds, soft to palpation, non-tender and non-distended Extremity normal to inspection, full ROM and no clubbing, cyanosis or edema Peripheral Pulses: Yes pulses 2+ throughout Skin no rashes or lesions noted Neuro oriented x3, CN's II-XII intact bilaterally and moves all extremities Sensorium / Orientation: awake and alert Psych affect normal Assessment & Plan Assessment/Plan (1) SOB (shortness of breath): (2) Cough: PLAN: #Acute COPD exacerbation with bronchitis * feels like her breathing is improving. * on IV solumedrol. On IV azithromycin * breathing treatment with bronchodilators * titrate oxygen to maintain sats >90% * * * #Hyperlipidemia: On statin #hypertension: On amlodipine and enalapril as well as metoprolol and spironolactone #Type 2 diabetes mellitus: Hold Metformin. Insulin sliding scale. Accu-Cheks AC at bedtime. #Depression: On spironolactone DVT prophylaxis: Lovenox CODE STATUS: Full code * Charges/Coding Visit Charges Inpatient E&M: 16171 Subs Hosp L2
[2021-06-19 16:31] LABS: Bedside Glucose 262 mg/dL (74-106)
[2021-06-19] MEDS: oxyCODONE 5 MG Tablet 10 MG PO (18:53)
[2021-06-19] MEDS: Pravastatin 40 MG Tablet PO (22:11)
[2021-06-19] MEDS: Aspirin E.C. 81 MG Tablet PO (22:13)
[2021-06-19] MEDS: Montelukast 10 MG Tablet PO (22:14)
[2021-06-19] MEDS: 0.9% Saline Lock 10 ML Syringe IV (22:15)
[2021-06-19] MEDS: MELATONIN 10 MG TABLET PO (22:29)
[2021-06-19 23:11] LABS: Bedside Glucose 331 mg/dL (74-106)
[2021-06-20] VITALS (15 sets, daily range): BP systolic 134–154; BP diastolic 75–94; PULSE 74–96; RESP 18–19; TEMP 36.5–37; O2SAT 89–98
[2021-06-20] MEDS: 0.9% Saline Lock 10 ML Syringe IV ×2 (05:39→13:38)
[2021-06-20] MEDS: Insulin Lispro 100 UNIT/ML INSULN.PEN SC ×3 (07:04→16:42)
[2021-06-20 07:11] LABS: Bedside Glucose 267 mg/dL (74-106)
[2021-06-20 07:15] LABS: Absolute Neutrophil Count 12.8 X10^3/uL (2.0-7.7); Basophil# 0.01 X10^3/uL; Basophil% 0.1 % (0-1); Hematocrit 32.3 % (37-47); Lymphocyte % 9.8 % (19-41); Mean Corp Hgb Conc 34.1 g/dL (32-36); Mean Corpuscular Hgb 30.4 pg (27.0-32.0); Mean Corpuscular Volume 89.2 fL (81-99); Mean Platelet Vol. 9.1 fl (6.2-12.0); Monocyte# 0.75 X10^3/uL; Monocyte% 4.9 % (0-10); NRBC Flagged by Analyzer 0 % (0-5); Neutrophil # 12.82 X10^3/uL (2.7-7.7); Platelet Count 516 K/mm3 (150-450); RBC Distribution Width CV 13.1 % (11.6-14.6); RBC Distribution Width SD 42.8 fl (35.1-43.9); Red Blood Count 3.62 M/mm3 (4.2-5.4); White Blood Count 15.3 K/mm3 (4.4-11.0)
[2021-06-20] MEDS: Ipratropium/Albuterol Sulfate 3 ML AMPUL.NEB INHALATION ×3 (07:27→15:03)
[2021-06-20 07:39] LABS: Anion Gap 6 (5-15); BUN 10 mg/dL (7-18); BUN/Creat Ratio 22.4 RATIO (10-20); Calcium,Total 8.7 mg/dL (8.5-10.1); Chloride 95 mmol/L (98-107); Creatinine, Serum 0.45 mg/dL (0.55-1.02); EST Glomerular Filtration Rate 150 mL/min (>60); Est Glom Filt Rate - Afr Amer 181 mL/min (>60); Estimated Creatinine Clearance 109.06 ml/min; Glucose 236 mg/dL (74-106); Potassium 4.3 mmol/L (3.5-5.1); Sodium Level 131 mmol/L (136-145)
[2021-06-20] MEDS: Multivitamins,Ther W-Minerals Tablet 1 TABLET PO (07:53)
[2021-06-20] MEDS: Pantoprazole Sodium 40 MG Tablet PO ×2 (07:53→16:54)
[2021-06-20] MEDS: glipiZIDE 5 MG Tablet 2.5 MG PO (07:53)
[2021-06-20] MEDS: Omega-3 Acid Ethyl Esters 1 GM Capsule 2 GM PO (09:37)
[2021-06-20] MEDS: Enoxaparin 40 MG/0.4 ML Syringe SC (09:37)
[2021-06-20] MEDS: Sertraline 50 MG Tablet 25 MG PO (09:37)
[2021-06-20] MEDS: Magnesium Chloride 64 MG Delay Rel.Tablet 128 MG PO (09:37)
[2021-06-20] MEDS: Lisinopril 20 MG Tablet PO (09:38)
[2021-06-20] MEDS: Metoprolol Tartrate 100 MG Tablet PO (09:38)
[2021-06-20] MEDS: Loratadine 10 MG Tablet PO (09:38)
[2021-06-20] MEDS: amLODIPine 10 MG Tablet PO (09:38)
[2021-06-20] MEDS: Spironolactone 25 MG Tablet PO (09:38)
[2021-06-20] MEDS: Cyanocobalamin 500 MCG Tablet 1000 MCG PO (09:38)
[2021-06-20] MEDS: Polyethylene Glycol 3350 17 GM PACKET PO (09:38)
[2021-06-20] MEDS: Cholecalciferol (VIT D3) 25 MCG TABLET (1,000 UNITS) 50 MCG PO (09:39)
[2021-06-20] MEDS: Meloxicam 15 MG Tablet PO (09:39)
[2021-06-20 11:51] LABS: Bedside Glucose 216 mg/dL (74-106)
--- NOTE | 2021-06-20 11:54 | PCM.DC.SUM ---
Providers Date of Admission: 06/18/21 Primary Care Physician: Dr. Howard Vicente MD Reason For Visit: ACUTE HYPOXIC, RESIRATORY INSUFFICIENCY Diagnosis Discharge Diagnosis (1) SOB (shortness of breath): Status: Acute Code(s): R06.02 - Shortness of breath (2) Cough: Status: Acute Code(s): R05.9 - Cough, unspecified (3) COPD exacerbation: Status: Chronic Code(s): J44.1 - Chronic obstructive pulmonary disease with (acute) exacerbation (4) Bronchitis: Status: Acute Code(s): J40 - Bronchitis, not specified as acute or chronic Medications at Discharge Home Medications albuterol sulfate 90 mcg/actuation aerosol inhaler 2 puff INHALATION Q6H PRN 11/30/18 aspirin 81 mg tablet,delayed release 81 mg PO QHS 11/30/18 loratadine 10 mg tablet 10 mg PO DAILY 11/30/18 meloxicam 15 mg tablet 15 mg PO DAILY 11/30/18 montelukast 10 mg tablet 10 mg PO QPM 11/30/18 jwrdpgfe-kml-kddvb acid 0.4 mg-lycopene 300 mcg-lutein 250 mcg tablet 1 tab PO DAILY 11/30/18 omega-3 fatty acids 1,000 mg capsule 2,000 mg PO DAILY cap 11/30/18 omeprazole 40 mg capsule,delayed release 40 mg PO BIDCM cap 11/30/18 pravastatin 40 mg tablet 40 mg PO DAILY 11/30/18 metformin 500 mg tablet,extended release 24hr 500 mg PO BIDCM tab 08/08/19 albuterol sulfate 2.5 mg INHALATION Q4H PRN 02/11/20 cyanocobalamin (vitamin B-12) 1,000 mcg capsule 1,000 mcg PO DAILY 02/11/20 glipizide 5 mg tablet 2.5 mg PO DAILY tab 02/11/20 polyethylene glycol 3350 17 gram/dose oral powder 17 g PO DAILY g 02/11/20 enalapril maleate 20 mg tablet 20 mg PO BID #180 tab 02/10/21 nitroglycerin 0.4 mg sublingual tablet 0.4 mg SUBLINGUAL Q5M PRN #25 tab 02/11/21 magnesium oxide 250 mg PO DAILY 04/07/21 metoprolol tartrate 100 mg tablet 100 mg PO BID #28 tab 06/09/21 Trelegy Ellipta 1 ea INHALATION DAILY 06/18/21 amlodipine 10 mg PO DAILY 06/18/21 carboxymethylcellulose sodium 1 drp EACH EYE BID 06/18/21 cholecalciferol (vitamin D3) 50 mcg PO DAILY 06/18/21 maltodextrin 1 ea PO QODAY 06/18/21 sertraline 25 mg PO DAILY 06/18/21 spironolactone 25 mg PO DAILY 06/18/21 prednisone 40 mg PO DAILY #10 tab 06/20/21 Hospital Course Operations None Procedures None Summary of Care Provided Minutes Spent on Discharge: 45 Hospital Course: Gil MARTINEZ, is a 65 F who presents with a complaint of shortness of breath. She was diagnosed with influenza about 3.5 weeks ago. She was given a short course of steroids and levaquin then, which she completed. However she remains short of breath and is also wheezing. She does have a history of COPD. She was coughing and was mildly productive of clear sputum. She denied any chest pain, palpitations, dizziness, nausea vomiting or diarrhea. Review of systems otherwise negative. VItals on admission were temp of 97.2F, with CO of 108 and BP of 140/85., RR of 18 and she was on 2L of of oxygen. CBC showed wbc of 14.2, with hb of 12 and platelets of 517. Chemistry showed sodium of 132 and bicarb of 26 as well as platelets of 4.2. BNP was 107.7. CXR showed stable mild increased markings at the left lung base with blunting of the left costophrenic angle suggestive of scarring. She was admitted to be managed for acute COPD exacerbation. She was started on IV Solu-Medrol as well as IV azithromycin. His shortness of breath gradually improved and she felt much better. She remained stable and was discharged home on 06/20/2021. She had a walking pulse ox which showed that she required 2 L of oxygen to go home on. Patient was on 2 L of oxygen at home but she says she only use it with exertion. Follow-up with your primary care doctor and pulmonology. Patient seen and examined prior to discharge. She had no active complaints and felt well. She had an uneventful night and says she was ready to go home.. Systems otherwise negative. Labs and vitals reviewed. Medication reviewed and reconciled. Physical Exam Const alert, oriented x3 and no apparent distress General Appearance: cooperative, comfortable and well kempt Exam Limitations: no limitations HEENT normocephalic, head/scalp atraumatic, hearing grossly normal bilaterally and moist oral mucous membranes Eyes PERRL, EOMs intact bilaterally and conjunctivae normal Neck no lymphadenopathy and supple Resp Resp Narrative: mildly diminished breath sounds bibasally, no wheezes and no crackles. On 2L of oxygen Cardio regular rate, regular rhythm, S1 normal heart sound, S2 normal heart sound and no murmurs GI normal to inspection, nondistended, normoactive bowel sounds, soft to palpation, non-tender and non-distended Extremity normal to inspection, full ROM and no clubbing, cyanosis or edema Skin no rashes or lesions noted Neuro oriented x3, CN's II-XII intact bilaterally and moves all extremities Sensorium / Orientation: awake and alert Psych affect normal Weight / BMI Weight Weight: 153 lb 10.595 oz Body Mass Index (BMI) 26.4 ABG / Lab / Microbiology Data Result Diagrams: 06/20/21 06:34 06/20/21 06:34 Laboratory: Laboratory Results - last 24 hr 06/19/21 16:14: POC Glucose 262 H 06/19/21 22:20: POC Glucose 331 H 06/20/21 06:34: WBC 15.3 H, RBC 3.62 L, Hgb 11.0 L, Hct 32.3 L, MCV 89.2, MCH 30.4, MCHC 34.1, RDW Std Deviation 42.8, RDW Coeff of Miguelito 13.1, Plt Count 516 H, MPV 9.1, Immature Gran % (Auto) 1.200 H, Neut % (Auto) 84.0 H, Lymph % (Auto) 9.8 L, [place] % (Auto) 4.9, Eos % (Auto) 0.0, Baso % (Auto) 0.1, Absolute Neuts (auto) 12.8 H, Absolute Lymphs (auto) 1.50, Nucleated RBC % 0 06/20/21 06:34: Sodium 131 L, Potassium 4.3, Chloride 95 L, Carbon Dioxide 30.0, Anion Gap 6, BUN 10, Creatinine 0.45 L, Estim Creat Clear Calc 109.06, Est GFR (MDRD) Af Amer 181, Est GFR (MDRD) Non-Af 150, BUN/Creatinine Ratio 22.4 H, Glucose 236 H, Calcium 8.7 06/20/21 07:03: POC Glucose 267 H 06/20/21 11:40: POC Glucose 216 H Microbiology: Microbiology 06/18/21 10:20 Blood Culture (Wb) - Right Hand Blood Culture - Preliminary No growth in 48 hours. 06/18/21 09:40 Blood Culture (Wb) - Anticubital Left Blood Culture - Preliminary No growth in 48 hours. 06/18/21 10:03 Nasal Secretion SARS-CoV-2 & FLU Antigen (Rapid) - Final D/C Instructions Discharge Diet: Low fat / Low cholesterol Discharge Activity: Return to Normal Activity Weight Bearing Status: Weight bearing as tolerated Call your doctor if you observe: Fever of 101 or Higher, Shortness of breath, Swelling in the ankles and Chest pain Meaningful Use Info Meaningful Use Diagnoses (Choose all that apply): None applicable Discharge Plan Admission Admit Date/Time: 06/18/21 10:56 Primary Reason for Your Visit: acute copd exacerbation Attending Provider: Avis Jacobo Primary Care Provider: Howard Vicente Instructions Patient Instructions: COPD: Wheezing and Chest Tightness Additional Instructions / Restrictions: use oxygen 2L for shortness of breath as needed Discharge Orders/Prescriptions Prescriptions: New prednisone 20 mg tablet 40 mg PO DAILY Qty: 10 RF: 0 Continued loratadine 10 mg tablet 10 mg PO DAILY RF: 0 montelukast 10 mg tablet 10 mg PO QPM RF: 0 omeprazole 40 mg capsule,delayed release(DR/EC) 40 mg PO BIDCM RF: 0 pravastatin 40 mg tablet 40 mg PO DAILY RF: 0 meloxicam 15 mg tablet 15 mg PO DAILY RF: 0 omega-3 fatty acids 1,000 mg capsule 2,000 mg PO DAILY RF: 0 Centrum Silver 0.4-300-250 mg-mcg-mcg tablet 1 tab PO DAILY RF: 0 aspirin [Adult Aspirin Regimen] 81 mg tablet,delayed release (DR/EC) 81 mg PO QHS RF: 0 albuterol sulfate 90 mcg/actuation HFA aerosol inhaler 2 puff INHALATION Q6H PRN (Reason: Shortness Of Breath) RF: 0 metformin 500 mg tablet extended release 24hr 500 mg PO BIDCM RF: 0 polyethylene glycol 3350 17 gram/dose powder 17 g PO DAILY RF: 0 glipizide 5 mg tablet 2.5 mg PO DAILY RF: 0 albuterol sulfate 2.5 mg /3 mL (0.083 %) solution for nebulization 2.5 mg INHALATION Q4H PRN (Reason: Sob &/Or Wheezing) RF: 0 cyanocobalamin (vitamin B-12) 1,000 mcg capsule 1,000 mcg PO DAILY RF: 0 enalapril maleate 20 mg tablet 20 mg PO BID Qty: 180 RF: 4 spironolactone 25 mg tablet 25 mg PO DAILY RF: 0 amlodipine 10 mg tablet 10 mg PO DAILY RF: 0 sertraline 25 mg Tablet 25 mg PO DAILY RF: 0 maltodextrin Powder 1 ea PO QODAY RF: 0 carboxymethylcellulose sodium Drops 1 drp EACH EYE BID RF: 0 cholecalciferol (vitamin D3) 50 mcg (2,000 unit) Tablet 50 mcg PO DAILY RF: 0 Trelegy Ellipta 100-62.5-25 mcg blister with device 1 ea INHALATION DAILY RF: 0 nitroglycerin 0.4 mg tablet, sublingual 0.4 mg sublingual Q5M PRN (Reason: Cardiac/Chest Pain) Qty: 25 RF: 3 magnesium oxide 250 mg magnesium tablet 250 mg PO DAILY RF: 0 metoprolol tartrate 100 mg tablet 100 mg PO BID Qty: 28 RF: 1 Referrals / Follow Up: Howard Vicente MD [Primary Care Provider] - Within 2 Weeks Disposition Disposition (needs filled in before D/C Order can be placed): Home, Self Care Charges/Coding Visit Charges Inpatient E&M: 67441 Disch Hosp
--- NOTE | 2021-06-20 14:23 | NURSING ---
Tele alert HR 148. Pt states she is aware my heart is racing. Dr Jacobo notified by charge nurse. Discharged cancelled. Pt notified.
--- NOTE | 2021-06-20 15:44 | PN.HOSP_ITS ---
Subjective Subjective Patient seen and examined. She felt much better today and wanted to be discharged home. Plan was to discharge patient home. However, after she was discharged, she was noted to have developed SVT on the floor. HR was up to 167. THis spontaneously resolved. Discharge therefore canceled and cardiology consulted. REview of systems otherwise negative. Objective Data Objective Data Vital Signs: Vital Signs Temp Pulse Resp BP Pulse Ox 97.9 F 81 19 H 139/75 H 94 06/20/21 14:00 06/20/21 15:18 06/20/21 15:18 06/20/21 14:00 06/20/21 14:46 Oxygen Flow Rate (L/min) [ 2 AMBULATING with Oxygen #1] Oxygen Flow Rate (L/min) [At 2 REST with Oxygen] Oxygen Flow Rate (L/min) 2 Oxygen Delivery Method Nasal Cannula Weight: 153 lb 10.595 oz Body Mass Index (BMI) 26.4 Intake & Output: Intake and Output for Last 24 Hours 06/18/21 06/19/21 06/20/21 23:59 23:59 23:59 Intake Total 1605 / 1905 2795 / 3035 795 / 795 Balance 1605 / 1905 2795 / 3035 795 / 795 Lab / Micro Data Result Diagrams: 06/20/21 06:34 06/20/21 06:34 Labs: Laboratory Results - last 24 hr 06/19/21 16:14: POC Glucose 262 H 06/19/21 22:20: POC Glucose 331 H 06/20/21 06:34: WBC 15.3 H, RBC 3.62 L, Hgb 11.0 L, Hct 32.3 L, MCV 89.2, MCH 30.4, MCHC 34.1, RDW Std Deviation 42.8, RDW Coeff of Miguelito 13.1, Plt Count 516 H, MPV 9.1, Immature Gran % (Auto) 1.200 H, Neut % (Auto) 84.0 H, Lymph % (Auto) 9.8 L, [place] % (Auto) 4.9, Eos % (Auto) 0.0, Baso % (Auto) 0.1, Absolute Neuts (auto) 12.8 H, Absolute Lymphs (auto) 1.50, Nucleated RBC % 0 06/20/21 06:34: Sodium 131 L, Potassium 4.3, Chloride 95 L, Carbon Dioxide 30.0, Anion Gap 6, BUN 10, Creatinine 0.45 L, Estim Creat Clear Calc 109.06, Est GFR (MDRD) Af Amer 181, Est GFR (MDRD) Non-Af 150, BUN/Creatinine Ratio 22.4 H, Glucose 236 H, Calcium 8.7 06/20/21 07:03: POC Glucose 267 H 06/20/21 11:40: POC Glucose 216 H Micro: Microbiology 06/18/21 10:20 Blood Culture (Wb) - Right Hand Blood Culture - Preliminary No growth in 48 hours. 06/18/21 09:40 Blood Culture (Wb) - Anticubital Left Blood Culture - Preliminary No growth in 48 hours. 06/18/21 10:03 Nasal Secretion SARS-CoV-2 & FLU Antigen (Rapid) - Final Physical Exam Const alert, oriented x3 and no apparent distress General Appearance: cooperative, comfortable and well kempt Exam Limitations: no limitations HEENT normocephalic, head/scalp atraumatic, hearing grossly normal bilaterally and moist oral mucous membranes Head and Scalp: normocephalic Eyes PERRL, EOMs intact bilaterally and conjunctivae normal Neck no lymphadenopathy and supple Resp Resp Narrative: mildly diminished breath sounds bibasally, no wheezes and no crackles. On 2L of oxygen Cardio regular rate, regular rhythm, S1 normal heart sound, S2 normal heart sound and no murmurs GI normal to inspection, nondistended, normoactive bowel sounds, soft to palpation, non-tender and non-distended Extremity normal to inspection, full ROM and no clubbing, cyanosis or edema Peripheral Pulses: Yes pulses 2+ throughout Skin no rashes or lesions noted Neuro oriented x3, CN's II-XII intact bilaterally and moves all extremities Sensorium / Orientation: awake and alert Psych affect normal Assessment & Plan Assessment/Plan (1) SOB (shortness of breath): (2) Cough: (3) COPD exacerbation: (4) Bronchitis: PLAN: #Acute COPD exacerbation with bronchitis * feels like her breathing is improving. * on IV solumedrol. On IV azithromycin * breathing treatment with bronchodilators * titrate oxygen to maintain sats >90% * * #SVT * Patient went into SVT today with heart rate went up to the 160s. This spontaneously resolved. * Looking back through her cardiology visit notes on outpatient basis, patient had complained of some palpitations and feeling her heart fluttering but she had not wanted any work-up done then and had deferred a Holter monitor. * will consult cardiology * continue on PO metoprolol * will check magnesium. K is 4.3 today #Hyperlipidemia: On statin #hypertension: On amlodipine and enalapril as well as metoprolol and spironolactone #Type 2 diabetes mellitus: Hold Metformin. Insulin sliding scale. Accu-Cheks AC at bedtime. #Depression: On spironolactone DVT prophylaxis: Lovenox CODE STATUS: Full code * Charges/Coding Visit Charges Inpatient E&M: 10393 Subs Hosp L2
--- NOTE | 2021-06-20 16:52 | CON.PCM.CA_ITS ---
Assessment & Plan Assessment/Plan (1) COPD exacerbation: (2) SOB (shortness of breath): (3) Coronary artery disease: QUALIFIERS: Coronary Disease-Associated Artery/Lesion type: [place] artery [place] vs. transplanted heart: [place] heart Associated angina: with other forms of angina Qualified Code(s): I25.118 - Atherosclerotic heart disease of [place] coronary artery with other forms of angina pectoris (4) Atherosclerosis of coronary artery of [place] heart without angina pectoris: QUALIFIERS: Coronary Disease-Associated Artery/Lesion type: [place] artery Qualified Code(s): I25.10 - Atherosclerotic heart disease of [place] coronary artery without angina pectoris (5) Supraventricular tachycardia: PLAN: 65-year-old patient with the known history of CAD Had a PCI and stent of the proximal circumflex using bare-metal stent in September 2011 This admission she had acute COPD exacerbation with bronchitis. Cardiac consultation requested as she has an episode of short run of SVT on cardiac telemetry She does not have any symptoms of chest pain no shortness of breath no dizziness or syncope Cardiac care plan recommendations; 1. I reviewed the current medication will continue current treatment 2. Holter monitor for 48-hour and the plan of evaluating further with event monitor as an outpatient 3. To follow-up with her primary physician assistant psychiatry the last echocardiogram showed LV function is preserved. And the last stress test in January 2021 showed no evidence of reversible myocardial ischemia. I discussed the cardiac care plan with the patient, and the nursing staff and will follow up with the cardiology clinic. HPI Consult Data Date of Consult: 06/20/21 HPI Narrative Reason for Consultation: Short episode of SVT HPI Narrative: Gil MARTINEZ, is a 65 F who presents [facility] Medical History (Updated 06/20/21 @ 16:[address] Therese Samuel MD) Atherosclerosis of coronary artery of [place] heart without angina pectoris Barretts esophagus Bilateral low back pain with sciatica Cataracts, bilateral COPD (chronic obstructive pulmonary disease) Depression Essential hypertension GERD (gastroesophageal reflux disease) History of lung cancer History of ST elevation myocardial infarction (STEMI) (~09/2011) Hyperlipidemia Multinodular goiter Type 2 diabetes mellitus without complication Home Medications albuterol sulfate 90 mcg/actuation aerosol inhaler 2 puff INHALATION Q6H PRN 11/30/18 [History Last Taken Unknown] aspirin 81 mg tablet,delayed release 81 mg PO QHS 11/30/18 [History Last Taken 06/17/21] loratadine 10 mg tablet 10 mg PO DAILY 11/30/18 [History Last Taken Unknown] meloxicam 15 mg tablet 15 mg PO DAILY 11/30/18 [History Last Taken Unknown] montelukast 10 mg tablet 10 mg PO QPM 11/30/18 [History Last Taken Unknown] wryknugh-zld-mpxrq acid 0.4 mg-lycopene 300 mcg-lutein 250 mcg tablet 1 tab PO DAILY 11/30/18 [History Last Taken Unknown] omega-3 fatty acids 1,000 mg capsule 2,000 mg PO DAILY cap 11/30/18 [History Last Taken Unknown] omeprazole 40 mg capsule,delayed release 40 mg PO BIDCM cap 11/30/18 [History Last Taken Unknown] pravastatin 40 mg tablet 40 mg PO DAILY 11/30/18 [History Last Taken Unknown] metformin 500 mg tablet,extended release 24hr 500 mg PO BIDCM tab 08/08/19 [History Last Taken Unknown] albuterol sulfate 2.5 mg INHALATION Q4H PRN 02/11/20 [History Last Taken 06/18/21] cyanocobalamin (vitamin B-12) 1,000 mcg capsule 1,000 mcg PO DAILY 02/11/20 [History Last Taken Unknown] glipizide 5 mg tablet 2.5 mg PO DAILY tab 02/11/20 [History Last Taken Unknown] polyethylene glycol 3350 17 gram/dose oral powder 17 g PO DAILY g 02/11/20 [History Last Taken Unknown] enalapril maleate 20 mg tablet 20 mg PO BID #180 tab 02/10/21 [Rx Last Taken Unknown] nitroglycerin 0.4 mg sublingual tablet 0.4 mg SUBLINGUAL Q5M PRN #25 tab 02/11/21 [Rx Last Taken Unknown] magnesium oxide 250 mg PO DAILY 04/07/21 [History Last Taken Unknown] metoprolol tartrate 100 mg tablet 100 mg PO BID #28 tab 06/09/21 [Rx Last Taken Unknown] Trelegy Ellipta 1 ea INHALATION DAILY 06/18/21 [History Last Taken Unknown] amlodipine 10 mg PO DAILY 06/18/21 [History Last Taken 06/17/21] carboxymethylcellulose sodium 1 drp EACH EYE BID 06/18/21 [History Last Taken Unknown] cholecalciferol (vitamin D3) 50 mcg PO DAILY 06/18/21 [History Last Taken Unknown] maltodextrin 1 ea PO QODAY 06/18/21 [History Last Taken Unknown] sertraline 25 mg PO DAILY 06/18/21 [History Last Taken Unknown] spironolactone 25 mg PO DAILY 06/18/21 [History Last Taken Unknown] prednisone 40 mg PO DAILY #10 tab 06/20/21 [Rx Last Taken Unknown] Allergy/AdvReac Type Severity Reaction Status Date / Time milk Allergy Intermediate Upset Verified 06/18/21 08:13 Stomach Sulfa (Sulfonamide Allergy Intermediate Itching Verified 06/18/21 08:13 Antibiotics) Family History Mother Cancer lung Diabetes CVA (cerebral vascular accident) Myocardial infarction Father Ischemic heart disease CVA (cerebral vascular accident) Dementia Myocardial infarction CAD (coronary artery disease) CABG Sister Diabetes COPD (chronic obstructive pulmonary disease) CVA (cerebral vascular accident) Thyroid disorder Aunt Cancer breast Sister Diabetes Heart disease Surgical History History of bilateral cataract extraction (~12/2018) History of cholecystectomy History of hysterectomy History of left heart catheterization (04/20/19) History of lobectomy of lung History of tonsillectomy Presence of stent in coronary artery Social History Smoking Status: Former smoker how long ago did patient quit smokin.5 years ago alcohol intake: never substance use type: former substance user Date of last use: 30+ years ago. Experimented as a teen caffeine: No Physical Exam Narrative Patient seen and alerted at bedside at bedside at time of evaluation She is alert orientated x3 Review of cardiac telemetry showed underlying normal sinus with short episode of SVT Cardiovascular exam S1-S2 is regular, no murmur no systolic or diastolic murmur, no pericardial rub, no gallop rhythm Chest exam is clear to auscultation bilateral. Examination abdomen soft Examination lower extremity no clubbing no lower extremity edema noted. Central nervous system exam no focal neurological deficit noted. Risk Stratification Risk Stratification Applicable: Yes Age >/= 65: No >/= 3 CAD Risk Factors (HTN, HLD, DM, family hx of CAD, or current smoker): No Aspirin Use in the Past 7 Days: Yes Severe Angina (>/= episodes in 24 hours): No EKG ST Changes >/= 0.5mm: No Positive Cardiac Marker: No JESSE Risk Stratification Score: 1 JESSE % Risk: 5% Risk Objective Data Vital Signs: Vital Signs Temp Pulse Resp BP Pulse Ox 97.9 F 81 19 H 139/75 H 94 06/20/21 14:00 06/20/21 15:18 06/20/21 15:18 06/20/21 14:00 06/20/21 14:46 Oxygen Flow Rate (L/min) [ 2 AMBULATING with Oxygen #1] Oxygen Flow Rate (L/min) [At 2 REST with Oxygen] Oxygen Flow Rate (L/min) 2 Oxygen Delivery Method Nasal Cannula Weight: 153 lb 10.595 oz Body Mass Index (BMI) 26.4 Intake & Output: Intake and Output for Last 24 Hours 06/18/21 06/19/21 06/20/21 23:59 23:59 23:59 Intake Total 1605 / 1905 2795 / 3035 795 / 795 Balance 1605 / 1905 2795 / 3035 795 / 795 Lab / Micro Data Result Diagrams: 06/20/21 06:34 06/20/21 06:34 Labs: Laboratory Results - last 24 hr 06/19/21 22:20: POC Glucose 331 H 06/20/21 06:34: WBC 15.3 H, RBC 3.62 L, Hgb 11.0 L, Hct 32.3 L, MCV 89.2, MCH 30.4, MCHC 34.1, RDW Std Deviation 42.8, RDW Coeff of Miguelito 13.1, Plt Count 516 H, MPV 9.1, Immature Gran % (Auto) 1.200 H, Neut % (Auto) 84.0 H, Lymph % (Auto) 9.8 L, [place] % (Auto) 4.9, Eos % (Auto) 0.0, Baso % (Auto) 0.1, Absolute Neuts (auto) 12.8 H, Absolute Lymphs (auto) 1.50, Nucleated RBC % 0 06/20/21 06:34: Sodium 131 L, Potassium 4.3, Chloride 95 L, Carbon Dioxide 30.0, Anion Gap 6, BUN 10, Creatinine 0.45 L, Estim Creat Clear Calc 109.06, Est GFR (MDRD) Af Amer 181, Est GFR (MDRD) Non-Af 150, BUN/Creatinine Ratio 22.4 H, Glucose 236 H, Calcium 8.7 06/20/21 07:03: POC Glucose 267 H 06/20/21 11:40: POC Glucose 216 H Micro: Microbiology 06/18/21 10:20 Blood Culture (Wb) - Right Hand Blood Culture - Preliminary No growth in 48 hours. 06/18/21 09:40 Blood Culture (Wb) - Anticubital Left Blood Culture - Preliminary No growth in 48 hours. Cardiology Labs/Tests 06/20/21 06:34: WBC 15.3 H, RBC 3.62 L, Hgb 11.0 L, Hct 32.3 L, MCV 89.2, MCH 30.4, MCHC 34.1, Plt Count 516 H, MPV 9.1, Immature Gran % (Auto) 1.200 H, Neut % (Auto) 84.0 H, Lymph % (Auto) 9.8 L, [place] % (Auto) 4.9, Eos % (Auto) 0.0, Baso % (Auto) 0.1, Absolute Neuts (auto) 12.8 H, Nucleated RBC % 0 06/20/21 06:34: Sodium 131 L, Potassium 4.3, Chloride 95 L, Carbon Dioxide 30.0, Anion Gap 6, BUN 10, Creatinine 0.45 L, Est GFR (MDRD) Af Amer 181, Est GFR (MDRD) Non-Af 150, BUN/Creatinine Ratio 22.4 H, Glucose 236 H, Calcium 8.7 Rhythm: Normal sinus with short episode of supraventricular tachycardia./SVT EKG: Normal sinus rhythm, nonspecific ST T changes abnormalities.
[2021-06-20 16:55] LABS: Magnesium 1.7 mg/dL (1.6-2.6)
[2021-06-20 17:01] LABS: Bedside Glucose 267 mg/dL (74-106)
== END 2021-06-20 17:08 | disposition home or self-care (01) ==
LOC: ED 09:37 → PCU 11:07
PROVIDERS: Nurse Practitioner; Admitting Provider Student in an Organized Health Care Education/Training Program; Emergency Provider Student in an Organized Health Care Education/Training Program; PCP Family Medicine; Visit Provider Student in an Organized Health Care Education/Training Program
DX: J44.1 Chronic obstructive pulmonary disease with (acute) exacerbation (principal); I47.1 Supraventricular tachycardia; E11.9 Type 2 diabetes mellitus without complications; I25.10 Atherosclerotic heart disease of native coronary artery without angina pectoris; R06.82 Tachypnea, not elsewhere classified; E78.5 Hyperlipidemia, unspecified; I10 Essential (primary) hypertension; Z87.891 Personal history of nicotine dependence; Z79.84 Long term (current) use of oral hypoglycemic drugs; Z79.82 Long term (current) use of aspirin; Z79.899 Other long term (current) drug therapy; Z79.51 Long term (current) use of inhaled steroids; I25.2 Old myocardial infarction; K21.9 Gastro-esophageal reflux disease without esophagitis; F32.A Depression, unspecified; R06.02 Shortness of breath
CPT/HCPCS: 36415; 71045; 80048; 82962; 83605; 83735; 83880; 85025; 87040; 87428; 93005; 94640; 96361; 96365; 96366; 96367; 96372; 96375; 96376; 97161; 97165; 97530; 99218; 99285; J7030; A4216; G0378

== ENCOUNTER 2021-06-20 17:05 | Outpatient (CLI) | payer BC, SELFPAY | END 2021-06-20 23:59 | disposition home or self-care (01) | PROVIDERS: PCP Family Medicine; Visit Provider Student in an Organized Health Care Education/Training Program | DX: I47.1 Supraventricular tachycardia (principal) | CPT/HCPCS: 93225; 93226 ==

== ENCOUNTER → 2021-07-24 | Outpatient (CLI) | payer BC, SELFPAY ==
[2021-07-24 10:38] LABS: Absolute Neutrophil Count 4.9 X10^3/uL (2.0-7.7); Basophil# 0.06 X10^3/uL; Basophil% 0.7 % (0-1); Eosinophil# 0.11 X10^3/uL; Eosinophils% 1.3 % (0-5); Hematocrit 39.9 % (37-47); Hemoglobin 12.9 g/dL (12.0-15.0); Mean Corp Hgb Conc 32.3 g/dL (32-36); Mean Corpuscular Hgb 30.8 pg (27.0-32.0); Mean Corpuscular Volume 95.2 fL (81-99); Mean Platelet Vol. 9.3 fl (6.2-12.0); Monocyte# 0.75 X10^3/uL; NRBC Flagged by Analyzer 0 % (0-5); Neutrophil # 4.93 X10^3/uL (2.7-7.7); Neutrophil % 59.5 % (47-70); Platelet Count 345 K/mm3 (150-450); RBC Distribution Width CV 13.9 % (11.6-14.6); RBC Distribution Width SD 48.6 fl (35.1-43.9); Red Blood Count 4.19 M/mm3 (4.2-5.4); White Blood Count 8.3 K/mm3 (4.4-11.0)
[2021-07-24 11:13] LABS: BNP,B-Type NATRIURETIC PEPTIDE 93.7 pg/mL (0-100)
[2021-07-24 11:25] LABS: Anion Gap 4 (5-15); BUN 16 mg/dL (7-18); BUN/Creat Ratio 24.1 RATIO (10-20); Calcium,Total 8.7 mg/dL (8.5-10.1); Chloride 100 mmol/L (98-107); Creatinine, Serum 0.66 mg/dL (0.55-1.02); EST Glomerular Filtration Rate 95 mL/min (>60); Est Glom Filt Rate - Afr Amer 115 mL/min (>60); Free T3 3.9 pg/mL (2.18-3.98); Glucose 80 mg/dL (74-106); Potassium 4.8 mmol/L (3.5-5.1); Sodium Level 135 mmol/L (136-145); T4 Free Direct 1.41 ng/dL (0.76-1.46); Thyroid Stim Hormone (TSH) 0.66 uIU/mL (0.358-3.74)
== END | disposition home or self-care (01) ==
LOC: LAB 09:56
PROVIDERS: PCP Family Medicine; Referring Provider Nurse Practitioner Gerontology; Visit Provider Nurse Practitioner Gerontology
DX: R06.00 Dyspnea, unspecified (principal); E87.1 Hypo-osmolality and hyponatremia; R53.83 Other fatigue
CPT/HCPCS: 36415; 80048; 83880; 84439; 84443; 84481; 85025

== ENCOUNTER → 2021-09-22 | Outpatient (CLI) | payer BC, SELFPAY ==
[2021-09-22 11:17] LABS: Absolute Lymphocyte Count 2.03 X10^3/uL (0.83-4.51); Absolute Neutrophil Count 5.6 X10^3/uL (2.0-7.7); Basophil# 0.04 X10^3/uL; Basophil% 0.5 % (0-1); Eosinophils% 1.2 % (0-5); Hematocrit 40.9 % (37-47); Hemoglobin 13.1 g/dL (12.0-15.0); Lymphocyte # 2.03 X10^3/ul (0.83-4.51); Lymphocyte % 23.9 % (19-41); Mean Corpuscular Hgb 30.2 pg (27.0-32.0); Mean Corpuscular Volume 94.2 fL (81-99); Mean Platelet Vol. 9.5 fl (6.2-12.0); Monocyte# 0.67 X10^3/uL; Monocyte% 7.9 % (0-10); NRBC Flagged by Analyzer 0 % (0-5); Neutrophil # 5.64 X10^3/uL (2.7-7.7); Neutrophil % 66.3 % (47-70); Platelet Count 327 K/mm3 (150-450); RBC Distribution Width CV 12.3 % (11.6-14.6); RBC Distribution Width SD 43.1 fl (35.1-43.9); Red Blood Count 4.34 M/mm3 (4.2-5.4); White Blood Count 8.5 K/mm3 (4.4-11.0)
[2021-09-22 11:47] LABS: ALB/GLOB Ratio 1.1 RATIO (0.9-2.4); AST(SGOT) 12 U/L (15-37); Alanine Aminotransfer ALT/SGPT 16 U/L (13-56); Albumin, Serum 3.8 g/dL (3.2-5.0); Alkaline Phosphatase 59 U/L (45-117); Anion Gap 9 (5-15); BUN 16 mg/dL (7-18); BUN/Creat Ratio 28.7 RATIO (10-20); Calcium,Total 9.3 mg/dL (8.5-10.1); Chloride 100 mmol/L (98-107); Cholesterol 152 mg/dL (200); Creatinine, Serum 0.56 mg/dL (0.55-1.02); EST Glomerular Filtration Rate 116 mL/min (>60); Est Glom Filt Rate - Afr Amer 140 mL/min (>60); Globulin 3.5 g/dL (2.2-4.2); Glucose 134 mg/dL (74-106); Hemoglobin A1c 6.1 % (3.8-5.6); High Density Lipoprotein 58 mg/dL; Magnesium 1.8 mg/dL (1.6-2.6); Protein, Total 7.3 g/dL (6.4-8.2); Sodium Level 136 mmol/L (136-145); Triglycerides 153 mg/dL; Very Low Density Lipoprotein 31 mg/dL (5-40)
== END | disposition home or self-care (01) ==
LOC: LAB 09:50
PROVIDERS: PCP Family Medicine; Visit Provider Physician Assistant
DX: I10 Essential (primary) hypertension (principal); E11.9 Type 2 diabetes mellitus without complications; E78.2 Mixed hyperlipidemia; E83.42 Hypomagnesemia; D72.829 Elevated white blood cell count, unspecified; R79.89 Other specified abnormal findings of blood chemistry
CPT/HCPCS: 36415; 80053; 80061; 83036; 83735; 85025

== ENCOUNTER → 2021-12-24 | Outpatient (CLI) | payer BC, MEDICARE, SELFPAY ==
--- NOTE | 2021-12-24 16:32 | STRESSREP ---
Stress Test Report Pharmacologic marker perfusion stress test. 66-year-old lady with left arm numbness for preoperative cardiac evaluation. Stress protocol: Resting EKG demonstrates normal sinus rhythm with a rate of 83 bpm normal intervals are noted. 0.4 mg of regadenoson was infused per usual protocol followed by rapid intravenous saline flush injection continuous EKG monitoring was performed. The maximum heart rate was 116 bpm which was 74% of max impacted heart rate the maximum workload was 1 metabolic equivalent. At rest there were no ST or T wave changes noted to suggest abnormal flow reserve and at peak infusion nonspecific ST changes were noted with did not meet the criteria for ischemia. No clinical angina was noted. The resting blood pressure was 138/70 with a final blood pressure 126/60 mmHg. Myocardial perfusion protocol. 10.7 mCi of technetium 99m sestamibi was injected at rest. 0.4 mg of regadenoson was infused per usual protocol. At peak infusion 32.1 mCi of technetium 99m sestamibi was injected stress images were obtained stress and rest images were reconstructed and compared in the short axis vertical long and horizontal long axis. Gated images were also obtained. Perfusion SPECT analysis: Review of the images demonstrate normal uptake of tracer noted in all areas of the myocardium. The resting images similar demonstrate normal uptake of tracer noted in all areas of the myocardium. No areas of reversibility are noted to suggest ischemia and no previous infarct is noted. Gated SPECT analysis: The gated ejection fraction is 69%. Conclusion: Normal pharmacologic myocardial perfusion stress test. Preserved ejection fraction.
== END | disposition home or self-care (01) ==
PROVIDERS: PCP Family Medicine; Referring Provider Nurse Practitioner Gerontology; Visit Provider Nurse Practitioner Gerontology
DX: I25.10 Atherosclerotic heart disease of native coronary artery without angina pectoris (principal); R20.0 Anesthesia of skin; Z95.5 Presence of coronary angioplasty implant and graft
CPT/HCPCS: 78452; 93017; A9500; A4216; J2785

== ENCOUNTER → 2023-06-22 | Outpatient (CLI) | payer MEDICARE, SELFPAY ==
[2023-06-22 12:03] LABS: Absolute Lymphocyte Count 2.87 X10^3/uL (0.83-4.51); Absolute Neutrophil Count 5.6 X10^3/uL (2.0-7.7); Basophil# 0.05 X10^3/uL; Basophil% 0.5 % (0-1); Eosinophils% 1.1 % (0-5); Hematocrit 38.4 % (37-47); Lymphocyte # 2.87 X10^3/ul (0.83-4.51); Lymphocyte % 30.4 % (19-41); Mean Corp Hgb Conc 31.3 g/dL (32-36); Mean Corpuscular Hgb 27.3 pg (27.0-32.0); Mean Corpuscular Volume 87.5 fL (81-99); Mean Platelet Vol. 9.8 fl (6.2-12.0); Monocyte# 0.78 X10^3/uL; Monocyte% 8.3 % (0-10); NRBC Flagged by Analyzer 0 % (0-5); Neutrophil % 59.3 % (47-70); Platelet Count 340 K/mm3 (150-450); RBC Distribution Width CV 15.7 % (11.6-14.6); RBC Distribution Width SD 50.6 fl (35.1-43.9); Red Blood Count 4.39 M/mm3 (4.2-5.4); White Blood Count 9.4 K/mm3 (4.4-11.0)
[2023-06-22 12:55] LABS: BNP,B-Type NATRIURETIC PEPTIDE 91.2 pg/mL (0-100)
[2023-06-22 13:07] LABS: Anion Gap 6 (5-15); BUN 15 mg/dL (7-18); BUN/Creat Ratio 23.6 RATIO (10-20); Chloride 101 mmol/L (98-107); Creatinine, Serum 0.64 mg/dL (0.55-1.02); EST Glomerular Filtration Rate 99 mL/min (>60); Est Glom Filt Rate - Afr Amer 120 mL/min (>60); Glucose 88 mg/dL (74-106); Potassium 4.7 mmol/L (3.5-5.1); Sodium Level 133 mmol/L (136-145)
== END | disposition home or self-care (01) ==
PROVIDERS: PCP Family Medicine; Visit Provider Nurse Practitioner Gerontology
DX: R06.00 Dyspnea, unspecified (principal)
CPT/HCPCS: 36415; 80048; 83880; 85025

== ENCOUNTER → 2024-02-08 | Outpatient (CLI) | payer MEDICARE, SELFPAY ==
--- NOTE | 2024-02-08 17:27 | STRESSREP ---
Stress Test Report Pharmacologic myocardial perfusion stress test. 68-year-old lady with a history of chest pressure Resting EKG demonstrates sinus rhythm with a rate of 67 bpm. Resting blood pressure is 138/82 mmHg. 0.4 mg of regadenoson was infused per usual protocol followed by rapid intravenous saline flush injection. Continuous EKG monitoring was performed. The maximum heart rate was 97 bpm which was 63 per of max impacted heart rate the maximum workload was 1 metabolic equivalent. At rest there were no ST or T wave changes noted to suggest ischemia and at peak infusion nonspecific ST changes were noted which did not meet the criteria for ischemia. No clinical angina is noted. The final blood pressure was 148/80 mmHg. Myocardial perfusion protocol. 11 point mCi of technetium 99m sestamibi was injected at rest. 0.4 mg of regadenoson was infused per usual protocol. At peak infusion 33.3 mCi of technetium 99m sestamibi was injected stress images were obtained stress and rest images were reconstructed and compared in the short axis vertical long and horizontal long axis. Gated images were also obtained. Perfusion SPECT analysis: Review of the stress images demonstrate normal uptake of tracer noted in all areas of the myocardium. The resting images similar demonstrated normal uptake of tracer noted in all areas of the myocardium. No areas of reversibility are noted to suggest ischemia and no previous infarct is noted. Gated SPECT analysis: The gated ejection fraction is 73%. Conclusion: Normal pharmacologic myocardial perfusion stress test. Preserved ejection fraction.
== END | disposition home or self-care (01) ==
LOC: CVS 06:59
PROVIDERS: PCP Family Medicine; Referring Provider Nurse Practitioner Gerontology; Visit Provider Nurse Practitioner Gerontology
DX: R07.9 Chest pain, unspecified (principal); I25.10 Atherosclerotic heart disease of native coronary artery without angina pectoris
CPT/HCPCS: 78452; 93017; A9500; A4216; J2785

== ENCOUNTER → 2024-07-18 | Outpatient (CLI) | payer MEDICARE, SELFPAY ==
--- NOTE | 2024-07-18 08:53 | CDU_ITS ---
Reason For Study Reason For Study: Dizziness Rt. Velocities/BP Lt. Velocities/BP Prox CCA 83.9/13.5 cm/sec. Prox CCA 67.4/16.8 cm/sec. Mid CCA 61.9/14.6 cm/sec. Mid CCA 55.3/14.6 cm/sec. Dist CCA 50.9/10.2 cm/sec. Dist CCA 49.4/11.6 cm/sec. Prox ICA 69.2/17.3 cm/sec. Prox ICA 50.4/14.5 cm/sec. Mid ICA 72.3/20.4 cm/sec. Mid ICA 49.2/14.2 cm/sec. Dist ICA 48.0/14.5 cm/sec. Dist ICA 34.8/14.4 cm/sec. Rt. ICA/CCA = 1.2. Lt. ICA/CCA = 0.9. Prox ECA 48.3/8.6 cm/sec. Prox ECA 64.5/14.5 cm/sec. Rt. Vert. 57.5/11.3 cm/sec. Lt. Vert. 47.4/11.6 cm/sec. Right Extracranial There is intimal thickening but no significant atherosclerotic plaque noted in the right common carotid artery. There is heterogeneous, irregular atherosclerotic plaque noted in the right internal carotid artery. There is intimal thickening but no significant atherosclerotic plaque noted in the right external carotid artery. Antegrade flow is noted in the right vertebral artery. Left Extracranial There is homogeneous, smooth atherosclerotic plaque noted in the left common carotid artery. There is heterogeneous, irregular atherosclerotic plaque noted in the left internal carotid artery. There is heterogeneous, irregular atherosclerotic plaque noted in the left external carotid artery. Antegrade flow is noted in the left vertebral artery. Procedure Carotid Duplex [id number]. This is a Carotid Duplex examination using B-mode, color flow and specral Doppler. Exam performed in department. VL/Carotid Duplex Ultrasound Interpretation Summary Mild (<50%) stenosis right extracranial internal carotid. Mild (<50%) stenosis left extracranial internal carotid. Patent and antegrade vertebrals bilaterally. Ordering Physician: Saloni Cooney Referring Physician: Saloni Cooney Performed By: Nell Prado, EVANGELINA
== END | disposition home or self-care (01) ==
LOC: CVS 08:51
PROVIDERS: PCP Family Medicine; Referring Provider Physician Assistant Medical; Visit Provider Physician Assistant Medical
DX: R42 Dizziness and giddiness (principal)
CPT/HCPCS: 93880

== ENCOUNTER 2024-09-07 11:05 | Emergency (ER) | payer MEDICARE, SELFPAY ==
[2024-09-07 11:05] VITALS: BP 141/90; PULSE 75; RESP 16; TEMP 36.4; O2SAT 98; BMI 24.3
--- NOTE | 2024-09-07 11:35 | CT_ITS ---
PROCEDURE: ABDOMEN/PELVIS WITH CONTRAST 09/07/2024 REASON FOR EXAM: R ABD PAIN TECHNIQUE: Abdomen and pelvis CT with intravenous contrast. Coronal and Sagittal reconstruction series were provided. PATIENT PREPARATION: Per protocol ORAL CONTRAST TYPE: 900 mL CONTRAST: 100 mL of Isovue 370 One or more dose reduction techniques were used (e.g., Automated exposure control, adjustment of the mA and/or kV according to patient size, use of iterative reconstruction technique. RADIATION DOSE SUMMARY: DLP: 616 mGycm COMPARISON: none FINDINGS: Limited sections of the lung bases demonstrate no focal pulmonary mass. Extensive coronary atherosclerosis. The liver, spleen, pancreas, both kidneys, and both adrenal glands demonstrate no acute findings. 1.1 x 1.2 cm right adrenal gland lesion. Hepatomegaly to 17.4 cm. The gallbladder is surgically removed. The stomach is unremarkable. The aorta and IVC demonstrate no acute findings. Extensive atherosclerosis of the abdominal vasculature. There is no free air, free fluid or intestinal obstruction. The small bowel loops are not dilated. The appendix is normal. No bowel obstruction. Extensive colonic diverticulosis without acute diverticulitis. Mild distal colonic and rectal wall thickening may reflect proctocolitis. The pelvic structures are intact. There is no solid pelvic mass. The urinary bladder is partially distended. Visualized osseous structures demonstrate no acute abnormality. CT/Abdomen/Pelvis WITH Contrast IMPRESSION: Mild distal colonic and rectal wall thickening may reflect proctocolitis. Exte nsive colonic diverticulosis without acute diverticulitis. No bowel obstruction. 1.1 x 1.2 cm right adrenal gland lesion. Reading Location: [id number]
[2024-09-07 11:47] LABS: Absolute Lymphocyte Count 1.79 X10^3/uL (0.83-4.51); Absolute Neutrophil Count 4.9 X10^3/uL (2.0-7.7); Basophil# 0.03 X10^3/uL; Basophil% 0.4 % (0-1); Eosinophil# 0.14 X10^3/uL; Eosinophils% 1.8 % (0-5); Hematocrit 37.2 % (37-47); Hemoglobin 11.9 g/dL (12.0-15.0); Lymphocyte # 1.79 X10^3/ul (0.83-4.51); Lymphocyte % 23.6 % (19-41); Mean Corpuscular Hgb 29.3 pg (27.0-32.0); Mean Corpuscular Volume 91.6 fL (81-99); Mean Platelet Vol. 9.2 fl (6.2-12.0); Monocyte# 0.68 X10^3/uL; NRBC Flagged by Analyzer 0 % (0-5); Neutrophil # 4.93 X10^3/uL (2.7-7.7); Neutrophil % 64.9 % (47-70); Platelet Count 306 K/mm3 (150-450); RBC Distribution Width SD 43.6 fl (35.1-43.9); Red Blood Count 4.06 M/mm3 (4.2-5.4); White Blood Count 7.6 K/mm3 (4.4-11.0)
--- NOTE | 2024-09-07 11:58 | EX.ED.DYSGE1 ---
HPI History of Present Illness Chief Complaint: Abd Pain Informant: patient Narrative Narrative: 69-year-old female presenting to the emergency room with intermittent pain for the past several weeks of her abdomen. She states is more of a triangle from the left upper quadrant to the right lower quadrant to the right upper quadrant. She states nothing seems to make it better or worse except food and that she has noted that she has been eating less. She has had prior cholecystectomy. No history of H. pylori infections gastric ulcers duodenal ulcers. States she believes she was diagnosed with colitis in the past but does not know what type. She denies vomiting but notes that she coughs and when she gets into a coughing fit will bring up phlegm. She states over the past 24 hours has become more constant. 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 She follows with colorectal surgery for that. She has had prior colonoscopies. She saw primary care and was referred to emergency this morning. No reported fever. She has been having bowel movements. She does note occasional blood but that has been an ongoing issue and not just in the past couple weeks. [facility] Medical History HPV (human papilloma virus) infection Cataracts, bilateral History of ST elevation myocardial infarction (STEMI) (~09/2011) Bilateral low back pain with sciatica Multinodular goiter Hyperlipidemia Depression History of lung cancer GERD (gastroesophageal reflux disease) Essential hypertension Atherosclerosis of coronary artery of [place] heart without angina pectoris COPD (chronic obstructive pulmonary disease) Type 2 diabetes mellitus without complication Barretts esophagus Home Medications ?Medication ?Instructions ?Recorded ?Last Taken ?Type albuterol sulfate 90 mcg/actuation 2 puff inhalation Q6H PRN 11/30/18 Unknown History aerosol inhaler Shortness Of Breath aspirin 81 mg tablet,delayed 81 mg PO QHS heart health 11/30/18 06/17/21 History release (Adult Aspirin Regimen) meloxicam 15 mg tablet 15 mg PO DAILY 11/30/18 Unknown History montelukast 10 mg tablet 10 mg PO QPM allergies 11/30/18 Unknown History mcfzyzqv-deg-yxjso acid 0.4 1 tab PO DAILY vitamin 11/30/18 Unknown History mg-lycopene 300 mcg-lutein 250 mcg tablet (Centrum Silver) omega-3 fatty acids 1,000 mg 2,000 mg PO DAILY supplement 11/30/18 Unknown History capsule omeprazole 40 mg capsule,delayed 40 mg PO BIDCM reflux 11/30/18 Unknown History release metformin 500 mg tablet,extended 500 mg PO BIDCM diabetes 08/08/19 Unknown History release 24hr (osmotic) albuterol sulfate 2.5 mg/3 mL 2.5 mg inhalation Q4H PRN Sob &/Or 02/11/20 06/18/21 History (0.083 %) solution for nebulization Wheezing magnesium oxide 250 mg PO DAILY supplement 04/07/21 Unknown History carboxymethylcellulose sodium 1 drp EACH EYE BID eye health 06/18/21 Unknown History polyethylene glycol 3350 17 17 g PO DAILY PRN constipation 09/22/21 Unknown History gram/dose oral powder nitroglycerin 0.4 mg sublingual 0.4 mg sublingual Q5M PRN 05/25/22 Unknown Rx tablet Cardiac/Chest Pain #25 tabs amlodipine 10 mg tablet 10 mg PO DAILY blood pressure #90 10/01/22 Unknown Rx tabs roflumilast 500 mcg tablet 500 mcg PO DAILY 06/22/23 Unknown History enalapril maleate 20 mg tablet 20 mg PO BID Pt in your system as 12/01/23 Unknown Rx Luis Gore #180 tabs baclofen 10 mg tablet 10 mg PO BID PRN 01/18/24 Unknown History glipizide 5 mg tablet 2.5 mg PO DAILY diabetes 01/18/24 Unknown History doxazosin 1 mg tablet (Cardura) 1 mg PO DAILY #90 tabs 02/02/24 Unknown Rx metoprolol tartrate 50 mg tablet 50 mg PO BID Pt. in your system as 03/26/24 Unknown Rx Luis Gore #180 tabs famotidine 40 mg tablet 40 mg PO QDAY 07/04/24 Unknown History fluoxetine 20 mg capsule (Prozac) 20 mg PO QDAY 07/04/24 Unknown History evolocumab 140 mg/mL subcutaneous 140 mg subcut Q2W #6 mL 07/11/24 Unknown Rx pen injector (Lolita Queen) Allergy/AdvReac Type Severity Reaction Status Date / Time milk Allergy Intermediate Upset Verified 09/07/24 11:07 Stomach Sulfa (Sulfonamide Allergy Intermediate Itching Verified 09/07/24 11:07 Antibiotics) ezetimibe (From Zetia) AdvReac Mild myalgias Verified 09/07/24 11:07 rosuvastatin AdvReac Mild myalgias Verified 09/07/24 11:07 atorvastatin AdvReac Unknown myalgia Verified 09/07/24 11:07 pravastatin AdvReac Unknown myalgias Verified 09/07/24 11:07 citalopram (From Celexa) AdvReac memory Verified 09/07/24 11:09 issues fluconazole AdvReac Rash Verified 09/07/24 11:07 sertraline (From Zoloft) AdvReac hyponatremi Verified 09/07/24 11:09 a Dprfpby-VCJ-DrV Reductase AdvReac myalgias Verified 09/07/24 11:09 Inhibitor Family History Mother Cancer lung Diabetes CVA (cerebral vascular accident) Myocardial infarction Father Ischemic heart disease CVA (cerebral vascular accident) Dementia Myocardial infarction CAD (coronary artery disease) CABG Sister Diabetes COPD (chronic obstructive pulmonary disease) CVA (cerebral vascular accident) Thyroid disorder Aunt Cancer breast Sister Diabetes Heart disease Surgical History History of left heart catheterization (04/20/19) History of bilateral cataract extraction (~12/2018) History of tonsillectomy History of lobectomy of lung Presence of stent in coronary artery History of hysterectomy History of cholecystectomy Social History Smoking Status: Former smoker how long ago did patient quit smokin alcohol intake: never substance use type: former substance user Date of last use: 30+ years ago. Experimented as a teen caffeine: Yes Type: coffee Number of servings: 3 ROS ROS ED Constitutional Constitutional ED: Denies chills or weight loss Eyes Eyes: Denies change in vision or diplopia ENT ENT ED: Denies ear pain, rhinorrhea or sore throat Cardiovascular Cardiovascular: Denies chest pain, orthopnea, palpitations or racing heartbeat Respiratory/Chest Respiratory/Chest: Reports cough; Denies dyspnea or orthopnea Gastrointestinal Gastrointestinal: Reports abdominal pain and nausea; Denies diarrhea or vomiting Genitourinary Genitourinary ED: Denies dysuria, hematuria or urinary frequency Musculoskeletal Musculoskeletal: Denies arthralgias or myalgias Integumentary Denies abscess or rash Neurologic Neurologic: Denies headache(s) or weakness Psychiatric Psychiatric: Denies anxiety, depression, suicidal ideation or suicidal thoughts Endocrine Endocrinology: Denies polydipsia, polyphagia or polyuria Allergic/Immunologic Allergic/Immunologic ED: Denies mouth swelling, tongue swelling or urticaria EXAM Physical Exam Const Vital Signs: 09/07/24 11:05 09/07/24 13:05 Temperature 97.6 F L Temperature Source Oral Pulse Rate 75 72 Respiratory Rate 16 Blood Pressure 141/90 H 138/69 H Blood Pressure Mean 107 92 Pulse Ox 98 Oxygen Delivery Method Room Air Positive well nourished and well developed General Appearance ED: well developed and NAD HEENT Reports normocephalic, head/scalp atraumatic and moist mucous membranes Eyes PERRL and EOMs intact bilaterally Neck no lymphadenopathy, supple and no JVD Resp normal respiratory effort and clear to auscultation bilaterally Cardio regular rate, regular rhythm and no murmurs GI GI Narrative: Tender palpation right side of the abdomen and epigastrium. Patient has guarding no rebound Inspection: Negative for abdominal distention Auscultation: normoactive bowel sounds Palpation: soft and guarding; Negative for rebound tenderness present Back/Spine no CVA tenderness and normal ROM Extremity normal to inspection General Extremety ED: Negative for edema General Extremity: Negative for edema Neuro oriented x3 and CN's II-XII intact bilaterally Sensorium / Orientation: alert Motor Exam: strength 5/5 throughout Psych mental status grossly normal Mood & Affect: Negative for depressed or tearful Skin no rashes or lesions noted and no wounds MDM MDM MDM Narrative Medical decision making narrative: Differential diagnosis includes but not limited to colitis appendicitis bowel obstruction pancreatitis choledocholithiasis UTI Patient's white count is 7.6 with a hemoglobin 11.9 platelet count of 306. BMP with a creatinine 0.54 normal sodium potassium anion gap 13 CO2 24.3. Normal LFTs lipase [address] of the abdomen pelvis with oral and IV contrast was obtained. This demonstrated extensive diverticulosis without evidence of diverticulitis. I do not see inflammatory changes. No obvious choledocholithiasis on labs or CT. The appendix is visualized and does not appear inflamed. I spoke with the patient and her regarding the above results. Would recommend outpatient evaluation possibly with GI referral. Patient was sleeping and was noted to become hypoxic. Patient states that she is overdue for a breathing treatment. She does have home oxygen which she wears occasionally during the day and always at night. History & Record Review Discussion w/independent historian: Patient and Family Additional record(s) reviewed:: Prior inpatient record, Prior outpatient record, Prior ED visit and Prior labs Lab Data Attestation: I reviewed the patient's lab results. Labs: Laboratory Results - last 24 hr 09/07/24 09/07/24 11:26 13:10 WBC 7.6 RBC 4.06 L Hgb 11.9 L Hct 37.2 MCV 91.6 MCH 29.3 MCHC 32.0 RDW Std Deviation 43.6 RDW Coeff of Miguelito 13.0 Plt Count 306 MPV 9.2 Immature Gran % (Auto) 0.300 Neut % (Auto) 64.9 Lymph % (Auto) 23.6 [place] % (Auto) 9.0 Eos % (Auto) 1.8 Baso % (Auto) 0.4 Absolute Neuts (auto) 4.9 Absolute Lymphs (auto) 1.79 Nucleated RBC % 0 Sodium 136 Potassium 4.3 Chloride 98 Carbon Dioxide 24.3 Anion Gap 13 BUN 15 Creatinine 0.54 L Estim Creat Clear Calc 58.12 Est GFR (MDRD) Non-Af 100 BUN/Creatinine Ratio 27.8 H Glucose 109 H Calcium 9.0 Total Bilirubin 0.24 Direct Bilirubin 0.12 AST 17 ALT 9 Alkaline Phosphatase 64 Total Protein 6.8 Albumin 4.1 Globulin 2.6 Lipase 85 H Urine Color Yellow Urine Clarity Clear Urine pH 7.0 Ur Specific [place] 1.010 Urine Protein Negative Urine Glucose (UA) Normal Urine Ketones Negative Urine Occult Blood Negative Urine Nitrite Negative Urine Bilirubin Negative Urine Urobilinogen Normal Ur Leukocyte Esterase 100 H Urine RBC 0 SEEN Urine WBC 0-5 SEEN Ur Squamous Epith Cells 0-5 SEEN Urine Bacteria 0 SEEN Urine Mucus 0 SEEN Radiography Diagnostic Testing: Clinical Impression(s) from Imaging Studies Abdomen/Pelvis CT 09/07/24 11:35 IMPRESSION: Mild distal colonic and rectal wall thickening may reflect proctocolitis. Extensive colonic diverticulosis without acute diverticulitis. No bowel obstruction. 1.1 x 1.2 cm right adrenal gland lesion. Reading Location: [facility] Discharge Plan Triage Chief Complaint: Abd Pain ED Provider: Shaan Marinelli Dx/Rx/DC Orders Prescriptions: No Action montelukast 10 mg tablet 10 mg PO QPM omeprazole 40 mg capsule,delayed release(DR/EC) 40 mg PO BIDCM meloxicam 15 mg tablet 15 mg PO DAILY omega-3 fatty acids 1,000 mg capsule 2,000 mg PO DAILY Centrum Silver 0.4-300-250 mg-mcg-mcg tablet 1 tab PO DAILY aspirin [Adult Aspirin Regimen] 81 mg tablet,delayed release (DR/EC) 81 mg PO QHS albuterol sulfate 90 mcg/actuation HFA aerosol inhaler 2 puff INHALATION Q6H PRN (Reason: Shortness Of Breath) metformin 500 mg tablet extended release 24hr 500 mg PO BIDCM polyethylene glycol 3350 17 gram/dose powder 17 g PO DAILY PRN (Reason: constipation) albuterol sulfate 2.5 mg /3 mL (0.083 %) solution for nebulization 2.5 mg INHALATION Q4H PRN (Reason: Sob &/Or Wheezing) glipizide 5 mg tablet 2.5 mg PO DAILY baclofen 10 mg tablet 10 mg PO BID PRN nitroglycerin 0.4 mg tablet, sublingual 0.4 mg sublingual Q5M PRN (Reason: Cardiac/Chest Pain) Qty: 25 3RF roflumilast 500 mcg tablet 500 mcg PO DAILY famotidine 40 mg tablet 40 mg PO QDAY fluoxetine [Prozac] 20 mg capsule 20 mg PO QDAY carboxymethylcellulose sodium Drops 1 drp EACH EYE BID magnesium oxide 250 mg magnesium tablet 250 mg PO DAILY amlodipine 10 mg tablet 10 mg PO DAILY Qty: 90 3RF enalapril maleate 20 mg tablet 20 mg PO BID Qty: 180 3RF doxazosin [Cardura] 1 mg tablet 1 mg PO DAILY Qty: 90 3RF metoprolol tartrate 50 mg tablet 50 mg PO BID Qty: 180 3RF Repatha SureClick 140 mg/mL pen injector 140 mg subcut Q2W Qty: 6 3RF Primary Care Provider: Howard Vicente Referrals: Howard Vicente MD [Primary Care Provider] - Print Language: Khmer
[2024-09-07 12:36] LABS: AST(SGOT) 17 U/L (<=31); Alanine Aminotransfer ALT/SGPT 9 U/L (<=34); Albumin, Serum 4.1 g/dL (3.4-4.8); Alkaline Phosphatase 64 U/L (35-104); Anion Gap 13 (5-15); BUN 15 mg/dL (4-19); BUN/Creat Ratio 27.8 RATIO (10-20); Bilirubin, Direct 0.12 mg/dL (0.00-0.30); Carbon Dioxide 24.3 mmol/L (21.0-32.0); Chloride 98 mmol/L (98-108); Creatinine, Serum 0.54 mg/dL (0.70-1.20); EST Glomerular Filtration Rate 100 (>60); Estimated Creatinine Clearance 58.12 ml/min (50-250); Globulin 2.6 g/dL (2.2-4.2); Glucose 109 mg/dL (70-99); Lipase 85 U/L (13-75); Potassium 4.3 mmol/L (3.3-5.1); Protein, Total 6.8 g/dL (5.9-8.4); Sodium Level 136 mmol/L (133-145); Total Bilirubin 0.24 mg/dL (0.00-1.30)
[2024-09-07 13:05] VITALS: BP 138/69; PULSE 72
[2024-09-07 13:18] LABS: Bacteria 0 SEEN /hpf (None Seen); Mucous, Urine 0 SEEN /hpf (<or=2+); Red Blood Cells-Urine 0 SEEN /hpf (0-5)
[2024-09-07 13:22] LABS: Color, Urine Yellow (Yellow); Glucose, Dipstick Normal (Normal); Ketone-Dipstick Negative (Negative); Leukocyte Esterase-Dipstick 100 /ul (Negative); Nitrite-Dipstick Negative (Negative); Occult Blood-Urine Negative /ul (Negative); Protein-Dipstick Negative (Negative); Urine Bilirubin Dipstick Negative (Negative); Urine Clarity Clear (Clear); Urine Urobilinogen Normal (Normal)
[2024-09-07 13:31] LABS: Squamous Epithelial Cells - UA 0-5 SEEN /hpf (5-10); White Blood Cells 0-5 SEEN /hpf (0-5)
[2024-09-07] MEDS: Ipratropium/Albuterol Sulfate 3 ML AMPUL.NEB INHALATION (14:39)
[2024-09-07 14:40] VITALS: PULSE 69; RESP 18; O2SAT 91
[2024-09-07 15:00] VITALS: BP 147/72; O2SAT 93
[2024-09-07 15:05] VITALS: BP 147/72; PULSE 77; RESP 16; TEMP 36.4; O2SAT 92
== END 2024-09-07 15:11 | disposition home or self-care (01) ==
PROVIDERS: Emergency Provider Emergency Medicine; PCP Family Medicine; Visit Provider Emergency Medicine
DX: R10.9 Unspecified abdominal pain (principal); J44.9 Chronic obstructive pulmonary disease, unspecified; E11.9 Type 2 diabetes mellitus without complications; I25.10 Atherosclerotic heart disease of native coronary artery without angina pectoris; E78.5 Hyperlipidemia, unspecified; Z87.891 Personal history of nicotine dependence; I10 Essential (primary) hypertension; R11.0 Nausea; R05.9 Cough, unspecified; Z95.5 Presence of coronary angioplasty implant and graft; Z90.49 Acquired absence of other specified parts of digestive tract; Z90.710 Acquired absence of both cervix and uterus; I25.2 Old myocardial infarction; Z85.118 Personal history of other malignant neoplasm of bronchus and lung; K21.9 Gastro-esophageal reflux disease without esophagitis
CPT/HCPCS: 74177; 80048; 80076; 81001; 83690; 85025; 94640; 99283; Q9967; A4216